=== PATIENT | female | born 1990 | race Caucasian/White ===

== ENCOUNTER → 2021-08-09 14:54 | Outpatient (CLI) | payer BC, SELFPAY | PROVIDERS: Visit Provider Nurse Practitioner | DX: Z20.822 Contact with and (suspected) exposure to COVID-19 (principal); U07.1 COVID-19 | CPT/HCPCS: C9803; U0003; U0005 ==

== ENCOUNTER 2021-08-19 14:56 | Emergency (ER) | payer BC, SELFPAY ==
[2021-08-19 15:35] VITALS: BP 107/74; PULSE 87; RESP 20; TEMP 36.8; O2SAT 99; BMI 39.1
--- NOTE | 2021-08-19 15:57 | HMH.EDUTC ---
[facility] Disposition Clinical Impression: Abscess and cellulitis of gluteal region Disposition: Home, Self-Care Condition on Discharge: Good Instructions: DI for Boils, Trimethoprim/Sulfamethoxazole (Alternative Therapy), Boil, Cephalexin, Mupirocin Additional Instructions: *Start antibiotic(s) immediately and be sure to take as ordered for the FULL length of time although you may be feeling better or start to see improvement in the next 24-48 hours *Monitor closely. Outlined redness so that you can monitor easier. Follow up immediately for new or worsening symptoms including but not limited to redness, swelling, streaking from site fever or chills. Wound Culture was obtained and sent to Lab make sure to follow up or call in the next 48 hours to make sure you are on correct antibiotic *Warm compress 15 minutes 3-4 times day *Never squeeze or pop these on your own. Seek immediate medical attention next time this occurs *Monitor Temp. Tylenol every 4 hours as needed and ibuprofen every 6 hours as needed (as long as your primary care doctor has told you that it is ok to take both. For fever, aches, pain. ER if no less that 101 despite Tylenol and ibuprofen Follow up with your family doctor/primary care physician in the next 48-72 hours if no improvement Return if needed Straight to ER if any life threatening symptoms Prescriptions: Sulfamethoxazole/Trimethoprim [Bactrim DS tablet] 1 each PO BID 7 Days #14 tab Transmission Status: Pending to [id number] cephALEXin [cephALEXin 500mg capsule*] 500 mg PO QID 7 Days #28 cap Transmission Status: Pending to [id number] Mupirocin Calcium [Mupirocin 2% Cream 15gm] 1 applicatio TP TID 10 Days #15 gm Transmission Status: Pending to [id number] Referrals: Provider,Referral, [Primary Care Provider] - As needed Forms: Work/School Release Time of Disposition: 16:37 Medical Decision Making - Fitz Inquiry Pt receiving controlled substance: No Fitz was queried for this patient: No Vital Signs: 08/19/21 15:35 Temperature 98.2 F Temperature Source Oral Pulse Rate [Right Brachial] 87 Respiratory Rate 20 Blood Pressure [Right Arm] 107/74 L Blood Pressure Mean [Right Arm] 85 Blood Pressure Source [Right Arm] Automatic Cuff Blood Pressure Position [Right Arm] Sitting 02 Sat by Pulse Oximetry 99 Oxygen Delivery Method Room Air Orders (Tests/Meds): ORDERS Category Date Time Status Wound Culture and Gram Stain Stat Micro 08/19/21 16:27 Ordered Medical Decision Narrative: Patient had large amount purulent drainage from area [facility] HPI - General Stated complaint: possible cyst in groin Time Seen by Provider: 08/19/21 15:58 Mode of Arrival: Ambulatory Source of Information: Patient Limitations: No Limitations Description of Symptoms (Recalled from Triage Doc. by RN): PATIENT C/O CYST TO GROIN AREA SINCE LAST THURSDAY. STATES CYST IS CAUSING HER A LOT OF PAIN WITH WALKING AND SITTING HEENT Symptoms (Recalled from RN notes): No Resp Symptoms (Recalled from RN notes): No Skin Symptoms (Recalled from RN notes): No MS Symptoms (Recalled from RN notes): No Functional Status (Recalled from RN notes): WNL - History of Present Illness Provider Complaint: Patient states that she gets cyst like boils on her groin area at times and some she has had to have lanced open States that she has been putting warm compresses on them and tried to open one to get it to start draining but hasnt had any success States that today it was sore and she noticed it looked swollen so she brought him in - Related Data Home Medications Medication Instructions Recorded Confirmed Doxycycline Hyclate [Doxycycline 50 mg PO BID 08/19/21 08/19/21 50mg Tablet] Previous Rx's Medication Instructions Recorded Mupirocin Calcium [Mupirocin 2% 1 applicatio TP TID 10 Days #15 gm 08/19/21 Cream 15gm] Sulfamethoxazole/Trimethoprim 1 each PO BID 7 Days #14 tab 08/19/21 [Ba
[2021-08-19 16:42] VITALS: BP 107/74; PULSE 87; RESP 20; TEMP 36.8; O2SAT 99
== END 2021-08-19 16:53 | disposition home or self-care (01) ==
PROVIDERS: Emergency Provider Nurse Practitioner
DX: L02.31 Cutaneous abscess of buttock (principal); F17.210 Nicotine dependence, cigarettes, uncomplicated
CPT/HCPCS: 87070; 87077; 87186; 87205; 99202; G0463

== ENCOUNTER 2022-08-04 18:18 | Emergency (ER) | payer BC, SELFPAY ==
[2022-08-04 18:40] VITALS: BP 110/82; PULSE 82; RESP 18; TEMP 36.8; O2SAT 99; BMI 45.0
--- NOTE | 2022-08-04 19:38 | EXP.UTC ---
Discharge Plan Disposition Patient Disposition: Home, Self-Care Condition: Good Prescriptions Prescriptions: No Action doxycycline hyclate 50 MG tablet,delayed release (DR/EC) 50 mg PO BID sulfamethoxazole-trimethoprim 1 EACH tablet 1 each PO BID 7 Days Qty: 14 0RF cephalexin 500 MG capsule 500 mg PO QID 7 Days Qty: 28 0RF mupirocin calcium 15 GM cream 1 applicatio TP TID 10 Days Qty: 15 0RF Rx Instructions: apply to area tid x 10 days Referrals Follow up/Referrals: Provider,Referral, MD [Primary Care Provider] - See instructions Activity Restrictions/Add. Instructions Additional Instructions/Restrictions: *Monitor Temp, Over the counter Motrin or Tylenol as directed/as needed Tylenol every 4 hours and Motrin every 6 hours (as long as your family doctor has told you that you can take it) for fever or pain. and straight to ER if unable to lower temp less than 101.0 after medication given *Warm salt water gargles may help to soothe the throat *Throat Lozenges? *Warm fluids like tea with honey may help to soothe the throat? *Sleep elevated *Humidifier/Vaporizer Follow up IMMEDIATELY for new or worsening symptoms or no Noticeable improvement over the next 48-72 hours. 911 for difficulty breathing or swallowing You were tested for today for COVID19 your test result should be back in the next 24-48 hours, you may check your results on the [facility] My Health Portal Make sure to take your Vitamins Vit. C Vit D and Zinc if you can take them Clinical Impressions Clinical Impression: Exposure to COVID-19 virus Stand Alone Forms Stand Alone Forms: Work/School Release Instructions Patient Instructions: DI for Viral Syndrome, Coronavirus Disease 2019 Discharge ED Provider: Tete Calixto [facility] [place] HPI General Stated complaint: cough, runny nose, covid test Mode of Arrival: Ambulatory Source of Information: Patient Limitations: No Limitations Time Seen by Provider: 08/04/22 19:38 Description of Symptoms (Recalled from Triage Doc. by RN): PATIENT C/O SORE THROAT, COUGH, RUNNY NOSE, CONGESTION AND WEAKNESS SINCE LAST NIGHT HEENT Symptoms (Recalled from RN notes): Yes Resp Symptoms (Recalled from RN notes): No Skin Symptoms (Recalled from RN notes): No MS Symptoms (Recalled from RN notes): No Functional Status (Recalled from RN notes): WNL History of Present Illness Provider Complaint: Patient states that she was recently around her brother in law that just tested postive for COVID States that last night she started with scratchy throat and feeling achy and fatigued States that started showing symptoms today too so she came in to get tested Related Data Home Medications Medication Instructions Recorded Confirmed doxycycline hyclate 50 mg 50 mg PO BID SKIN CONDITION 08/19/21 08/19/21 tablet,delayed release Previous Rx's Medication Instructions Recorded cephalexin 500 mg capsule 500 mg PO QID 7 days #28 caps 08/19/21 mupirocin calcium 2 % topical cream 1 applicatio TP TID 10 days ##15 08/19/21 sulfamethoxazole 800 1 each PO BID 7 days #14 tabs 08/19/21 mg-trimethoprim 160 mg tablet Allergies Allergy/AdvReac Type Severity Reaction Status Date / Time No Known Allergies Allergy Verified 12/16/18 12:51 Worker's Comp Is this a Worker's Comp case?: No PFSH PFS Surgical History (Updated 08/04/22 @ 18:57 by Olena Hardy RN) History of section Social History (Updated 08/04/22 @ 18:57 by Olena Hardy RN) Smoking Status: Current every day smoker tobacco type: cigarettes packs per day: 1 second hand exposure: Yes alcohol intake: never current occupational status: employed Travel in the last 8 weeks: None household members: family housing: house ROS Obtained: Yes All systems reviewed & no additional complaints except as documented and Yes Systems reviewed as appropriate & no additional complaints except as
[2022-08-04 19:45] VITALS: BP 110/82; PULSE 82; RESP 18; TEMP 36.8; O2SAT 99
== END 2022-08-04 19:48 | disposition home or self-care (01) ==
PROVIDERS: Emergency Provider Nurse Practitioner
DX: J02.9 Acute pharyngitis, unspecified (principal); R05.9 Cough, unspecified; R09.81 Nasal congestion; R53.1 Weakness; F17.210 Nicotine dependence, cigarettes, uncomplicated; Z20.822 Contact with and (suspected) exposure to COVID-19
CPT/HCPCS: 99212; C9803; G0463; U0003; U0005

== ENCOUNTER 2024-01-05 11:46 | Outpatient (POV) | payer BC, SELFPAY | END 2024-01-05 23:59 | disposition home or self-care (01) | LOC: SC 11:47 | PROVIDERS: PCP Dermatology; Visit Provider Dermatology | DX: Z00.00 Encounter for general adult medical examination without abnormal findings (principal) ==

== ENCOUNTER 2024-03-01 10:42 | Outpatient (POV) | payer BC, SELFPAY | END 2024-03-01 23:59 | disposition home or self-care (01) | LOC: SC 10:42 | PROVIDERS: Visit Provider Dermatology | DX: Z00.00 Encounter for general adult medical examination without abnormal findings (principal) ==

== ENCOUNTER 2024-04-25 11:41 | Outpatient (CLI) | payer BC, SELFPAY ==
--- NOTE | 2024-04-25 11:57 | XR_ITS ---
FINAL REPORT CLINICAL HISTORY: RT ELBOW JOINT PAIN FINDINGS: 3 views of the right elbow were obtained. There is no acute fracture or dislocation. The joint spaces are intact. There is not soft tissue abnormality. IMPRESSION: No acute fracture Reviewed, Interpreted and Dictated by Jon Mckeon III, MD Transcribed by Angela Ferro Authenticated and [facility]
--- NOTE | 2024-04-25 11:57 | XR_ITS ---
FINAL REPORT CLINICAL HISTORY: LT HAND PAIN FINDINGS: LEFT HAND Three views demonstrate no acute fracture or dislocation. The visualized joint spaces are normally aligned. The soft tissues are unremarkable. IMPRESSION: No acute process. Reviewed, Interpreted and Dictated by Jon Mckeon III, MD Transcribed by Angela Ferro [facility]
== END 2024-04-25 23:59 | disposition home or self-care (01) ==
LOC: RAD 11:41
PROVIDERS: PCP Nurse Practitioner Family; Visit Provider Nurse Practitioner Family
DX: M25.521 Pain in right elbow (principal); M79.642 Pain in left hand
CPT/HCPCS: 73080; 73130

== ENCOUNTER 2024-05-25 06:25 | Day surgery (SDC) | payer BC, SELFPAY ==
[2024-05-23 13:10] VITALS: BMI 45.4
[2024-05-25] VITALS (11 sets, daily range): BP systolic 108–124; BP diastolic 65–78; PULSE 77–85; RESP 12–18; TEMP 36.1–43; O2SAT 91–99
[2024-05-25 07:05] LABS: Urine Pregnancy, HCG Qual. Negative (Negative)
[2024-05-25] MEDS: LACTATED RINGERS 1000ML 1,000 ML 100 ML IV (07:10)
--- NOTE | 2024-05-25 07:29 | EXP.ANES.CKL ---
[facility] Disclaimer: The information contained in this section may have been updated after the patient was seen, as this information can be updated by other users. Medical History History of COVID-19 Surgical History History of section Family History Father Family history of diabetes mellitus type II Grandfather Family history of acute congestive heart failure Social History Smoking Status: Current every day smoker tobacco type: cigarettes packs per day: 1 second hand exposure: Yes alcohol intake: current substance use type: denies use current occupational status: employed Travel in the last 8 weeks: None household members: family housing: house [facility] Anesthesia Checklist Patient Identification Patient Identification: Arm Band and Verbal (Name & ) Structural Data Admitted From: Home Planned Operative Procedure/s: Excision soft tissue mass Consent for Planned Operative Procedure(s) Verified: Yes Verified Documents: Surgical Consent and History and Physical NPO Status Verified Time NPO: 00:00 Chart Verification Results Verified: HCG Additional verifications Anesthesia Reactions: No Hx Blood Transfusions: No Blood Transfusion Reaction: No Airway Assessment Mallampati Score:: Class III C-Spine Mobility Assessed: Yes TMJ Mobility Assessed: Yes Dentition: Good Dentition Neurological Assessment Level of Consciousness: Awake Hx Seizures: No Numbness or tingling in extremities: No Anesthesia Plan Anesthesia Risk discussed: Yes Anesthesia Plan: Verified ASA Class: III Anesthesia Type: General
[2024-05-25] MEDS: CEFAZOLIN SODIUM 2 GM in 0.9 % SODIUM CHLORIDE 100 ML IV (08:47)
[2024-05-25] MEDS: LIDOCAINE 1% W/EPI 1:100,000 20ML VIAL 20 ML (08:48)
--- NOTE | 2024-05-25 09:16 | EXP.ANES.I ---
[facility] Anesthesia Record Part I Anesthesia Record I Intake, IV Amount: 500 Hydration: Adequate Estimated blood loss (mL): 5 Urine output (mL): 0 Blood Products used (#): none Blood Pressure: 120/73 SaO2: 91 Pulse Rate: 85 Airway Patency: Patent Respiratory Rate: 16 Temperature: 98.9 F Patient is:: Drowsy and Stable Stable to PACU at:: 09:10
--- NOTE | 2024-05-25 09:17 | P.OP_ITS ---
Date of procedure: 05/25/24 Pre-op Diagnosis:: Soft tissue mass dorsum left hand Post-op Diagnosis:: Same Procedure performed:: Excision soft tissue mass dorsum left hand, ganglion cyst Surgeon:: Faustino Santiago DO STEAM BR[employer] OPERATOR:: Valente Erwin Anesthesia: LMA Estimated blood loss (mL): 0 Operative findings:: Soft tissue mass attached to extensor tendon sheath left hand consistent with ganglion cyst Operative note:: Patient is identified preoperatively. Left hand marked with yes my initials. Transferred operative suite placed upon operating bed with a hand table. General anesthesia administered airway was secured. Left upper extremity was then prepped and draped normal sterile fashion. Once prepped and draped final operative timeout performed to identify proper patient procedure and extremity. Everyone involved the case agreed. There is no counter indications to beginning. Did receive preoperative antibiotics. Marking pen was used to jim plan incision over the soft tissue mass of the dorsum of the left hand. Esmarch was used to exsanguinate the extremity and pneumatic tourniquet inflated to 250 mmHg. Skin knife was used incise through skin. Dissection with scissors were taken down to the palpable soft tissue mass in the dorsum of the left hand adjacent to and moving with the extensor tendons. Careful dissection was taken down to identify soft tissue mass on the dorsum of the extensor tendon this was a ganglion cyst attached to the extensor tendon sheath. Careful dissection was taken to dissect soft tissue mass off of the tendon itself Excised and passed off for pathology. The nature of the soft tissue mass was consistent with ganglion cyst. Irrigation of the wound was performed. Skin was closed analysis sterile hand dressing placed patient waken anesthesia taken recovery stable condition. Condition: stable Disposition: PACU Complications:: None apparent
--- NOTE | 2024-05-25 13:08 | EXP.ANES.II ---
[facility] Anesthesia Record Part II Anesthesia Record Part II Discharge Time: 09:40 Destination: Surgical Day Care (OP Surgery) PACU nurse assessment reviewed?: Yes Patient Condition:: Good Anesthesia Complications:: None Swallowing reflex intact?: Yes Airway Patency: Patent Cyanosis?: No Blood Pressure: 122/78 SaO2: 93 Respiratory Rate: 16 Pulse Rate: 84 Temperature: 97.8 F Mental Status: Alert & Oriented Pain level:: 0 Nausea and/or vomitting:: None Intake, IV Amount: 0 Hydration: Adequate
== END 2024-05-25 10:11 | disposition home or self-care (01) ==
PROVIDERS: PCP Nurse Practitioner Family; Visit Provider Orthopaedic Surgery
PROC: (CPT 26160; principal; 2024-05-25 08:30)
DX: M67.442 Ganglion, left hand (principal)
CPT/HCPCS: 26160; 81025; 96374; J0690; J1100; J2250; J2405; J3010; J7120

== ENCOUNTER 2024-06-06 14:00 | Outpatient (RCR) | payer BC, SELFPAY | END 2024-06-06 15:00 | disposition home or self-care (01) | LOC: OT 14:00 | PROVIDERS: Visit Provider Orthopaedic Surgery | DX: M77.11 Lateral epicondylitis, right elbow (principal) | CPT/HCPCS: 97010; 97014; 97035; 97110; 97140; 97164; 97165; G0283 ==

== ENCOUNTER 2024-06-20 01:27 | Emergency (ER) | payer BC, SELFPAY ==
[2024-06-20 01:28] VITALS: BP 141/101; PULSE 83; RESP 20; TEMP 36.7; O2SAT 100; BMI 45.4
--- NOTE | 2024-06-20 01:36 | HMH.EDGENADL ---
Discharge Plan Disposition Patient Disposition: Home, Self-Care Prescriptions Prescriptions: No Action ibuprofen 800 mg tablet 800 mg PO Q8H PRN (Reason: post op pain) Qty: 42 0RF Referrals Follow up/Referrals: Conrad Solis APRN [Primary Care Provider] - See instructions Activity Restrictions/Add. Instructions Additional Instructions/Restrictions: Please return for formal ultrasound of the leg. Clinical Impressions Clinical Impression: Pain and swelling of right lower leg Print Language Print Language: Brazilian Discharge ED Provider: Rodrigo Shaffer General Adult HPI General Chief complaint: Extremity Problem,Nontraumatic Stated complaint: R leg swelling, toes tingling, numbness Time Seen by Provider: 06/20/24 01:36 History of Present Illness HPI narrative: 33-year-old female with history of obesity presents for right lower extremity pain and swelling. She reports that she has chronic right foot pain from walking on concrete at work. It hurts on the lateral aspect. She is here tonight because she has new right leg pain and swelling that cropped up after she drove back from [place]. She reports that she had a 14-hour car ride on the way back. She reports no history of blood clots, denies any chest pain abdominal pain shortness of breath. She has a Mirena and absolutely denies any possibility of . She denies any trauma to the area, does reports she got some sunburn. Related Data Previous Rx's ?Medication ?Instructions ?Recorded ibuprofen 800 mg tablet 800 mg PO Q8H PRN post op pain #42 05/25/24 tabs Allergies Allergy/AdvReac Type Severity Reaction Status Date / Time No Known Allergies Allergy Verified 06/09/24 09:53 [facility] Disclaimer: The information contained in this section may have been updated after the patient was seen, as this information can be updated by other users. Medical History History of COVID-19 Surgical History History of section Family History Father Family history of diabetes mellitus type II Grandfather Family history of acute congestive heart failure Social History (Reviewed 06/09/24 @ 09:54 by AGNES Hughes Smoking Status: Current every day smoker tobacco type: cigarettes packs per day: 1 second hand exposure: Yes alcohol intake: current substance use type: denies use current occupational status: employed Travel in the last 8 weeks: None household members: family housing: house ROS Obtained: Yes All systems reviewed & no additional complaints except as documented Physical Exam General General appearance: alert, in no apparent distress and obese Head Head exam: atraumatic and normocephalic Eye Eye exam: Present normal appearance, PERRL and EOMI ENT ENT exam: Present normal oropharynx and normal external ear exam Neck Neck exam: Present normal inspection and full ROM Chest Chest inspection: Present normal inspection and symmetric chest wall rise; Absent tenderness Respiratory Respiratory exam: Present normal lung sounds bilaterally; Absent respiratory distress Cardiovascular Cardiovascular exam: Present regular rate and normal rhythm Abdominal Exam Abdominal exam: Present soft; Absent distention, tenderness or guarding Extremities Exam Extremities exam: Present other (Pitting edema and swelling to the right foot, circumferential swelling to the right calf with some increased erythema of the right compared to the left. Mild tenderness of the lower calf, no popliteal tenderness) Back Exam Back exam: Present normal inspection; Absent tenderness Neurological Exam Neurological exam: Present alert and oriented X3; Absent motor sensory deficit Psychiatric Psychiatric exam: Present normal affect and normal mood Skin Skin exam: Present warm, dry and normal color Lymphatic Lymphatic Findings: no adenopathy Medical Decision Making Medical Records Medical records reviewed: Yes I reviewed the patient's medical records. Fitz Inquiry Pt receiving controlled substance: No Fitz was queried for this patient: No Vital Signs: 06/20/24 01:28 06/20/24 02:22 Temperature 98.1 F 98.1 F Temperature Source Oral Oral Pulse Rate 68 Pulse Rate [Right Brachial] 83 Respiratory Rate 20 18 Blood Pressure 138/78 Blood Pressure [Right Arm] 141/101 H Blood Pressure Mean [Right Arm] 114 02 Sat by Pulse Oximetry 100 Oxygen Delivery Method Room Air Room Air Lab Data Lab results reviewed: Yes I reviewed the patient's lab results. Orders (Tests/Meds): ED MEDICATIONS Discontinued Medications Generic Name Dose Route Start Last Admin Trade Name Freq PRN Reason Stop Dose Admin Enoxaparin Sodium 100 mg 06/20/24 02:00 06/20/24 02:03 Enoxaparin 100mg/Ml Syringe 0.75 mg/kg (100 mg) 06/20/24 02:01 100 mg SQ Administration ONCE ONE ORDERS Category Date Time Status Foot XR right minimum 3 views [XR foot RT min 3V] Stat Exams 06/20/24 01:58 Taken POCUS Point of Care (ER Only) Stat Exams 06/20/24 01:36 Ordered Medical Decision Narrative: 33-year-old female with history of obesity presents for right leg pain and swelling after a 14-hour car ride from [place].. History was obtained via interactive discussion with patient. On arrival, patient is [afebrile, hemodynamically stable, satting appropriately, alert, oriented x4, GCS 15], moving all extremities spontaneously. Full physical exam performed and significant for right lower extremity pain and swelling as documented above. Patient denies any chest pain abdominal pain shortness of breath, has normal vital signs. Differential includes but is not limited to DVT, PE, cellulitis, abscess, fracture, trauma. Workup initiated including radiograph of the right foot and bedside ultrasound. Bedside ultrasound for DVT was inconclusive secondary to patient body habitus. On my interpretation, radiographs of the right foot showed no evidence of acute fracture in the area of patient's pain. Given concern for DVT, patient was given a dose of Lovenox and an outpatient form to return for formal ultrasound tomorrow morning. Blood work and CT imaging of the chest was considered to assess for PE but administered given patient has normal vital signs and no symptoms to suggest PE. Patient discharged in stable condition with return precautions. Procedures Risk/Benefits of Procedure(s) Were Explained: Yes Critical Care Critical Care Time Critical Care Time: No
--- NOTE | 2024-06-20 01:58 | XR_ITS ---
PROCEDURE INFORMATION: Exam: XR Right Foot Exam date and time: 06/20/2024 1:57 AM Age: 33 years old Clinical indication: Pain; Foot; Right; Additional info: Acute on chronic lateral foot pain TECHNIQUE: Imaging protocol: Radiologic exam of the right foot. Views: 3 or more views. COMPARISON: No relevant prior studies available. FINDINGS: Bones/joints: Normal. Soft tissues: Normal. IMPRESSION: No acute findings.
[2024-06-20] MEDS: ENOXAPARIN 100MG/ML SYRINGE 100 MG SQ (02:03)
[2024-06-20 02:22] VITALS: BP 138/78; PULSE 68; RESP 18; TEMP 36.7; O2SAT 99
== END 2024-06-20 02:24 | disposition home or self-care (01) ==
PROVIDERS: Emergency Provider Emergency Medicine; PCP Nurse Practitioner Family
DX: M79.661 Pain in right lower leg (principal); R22.41 Localized swelling, mass and lump, right lower limb
CPT/HCPCS: 73630; 96372; 99283; J1650

== ENCOUNTER 2024-06-20 11:02 | Outpatient (CLI) | payer BC, SELFPAY ==
--- NOTE | 2024-06-20 11:07 | CA_ITS ---
FINAL REPORT TECHNIQUE: Multiple transverse and longitudinal images were performed of the right femoral-popliteal deep venous system with augmentation and compression maneuvers. CLINICAL HISTORY: Patient states her RLE edema x 3 days happened as she was traveling 14 hours by car from [place]. She states [place]. Pain is mostly in the right foot. Denies trauma. Smoker, obesity, Mirena IUD x 7 years. COMPARISON: None FINDINGS: Right lower extremity duplex ultrasound demonstrates normal flow in the deep venous system. There is no abnormal echogenicity to suggest thrombus. There is normal compression and augmentation. IMPRESSION: No evidence of right DVT. Reviewed, Interpreted and Dictated by Phyllis Carlin MD Transcribed by Alejandra Cespedes Authenticated and [facility]
== END 2024-06-20 23:59 | disposition home or self-care (01) ==
LOC: RT 11:04
PROVIDERS: PCP Nurse Practitioner Family; Visit Provider Emergency Medicine
DX: M79.661 Pain in right lower leg (principal); M79.89 Other specified soft tissue disorders
CPT/HCPCS: 93971

== ENCOUNTER 2025-09-13 03:15 | Emergency (ER) | payer OTHER, SELFPAY ==
--- NOTE | 2025-09-13 03:20 | HMH.EDGENADL ---
Discharge Plan Disposition Patient Disposition: Home, Self-Care Prescriptions Prescriptions: No Action ibuprofen 800 mg tablet 800 mg PO Q8H PRN (Reason: post op pain) Qty: 42 0RF Referrals Follow up/Referrals: Conrad Solis APRN [Primary Care Provider, Medical] - See instructions Faustino Santiago DO [Staff Physician, Orthopedics] - See instructions Activity Restrictions/Add. Instructions Additional Instructions/Restrictions: Recommend limiting activities that produce pain in the finger, otherwise okay to do normal activities. If your symptoms continue or worsen, recommend following up with orthopedist Dr. Santiago. Clinical Impressions Clinical Impression: Traumatic ecchymosis of finger Qualifiers: Encounter type: initial encounter Qualified Code(s): S60.00XA - Contusion of unspecified finger without damage to nail, initial encounter Print Language Print Language: American Discharge ED Provider: Rodrigo Shaffer General Adult HPI General Chief complaint: Extremity Injury, Upper Stated complaint: R hand, finger injury Time Seen by Provider: 09/13/25 03:20 History of Present Illness HPI narrative: 34-year-old female without significant past medical history presents for bruising to the right hand. She was working at [employer] when she had a large roll of film smashed her hand. She reports bruising over the MCP joints of the 2nd and 3rd digit as well as the PIP joint of the fourth digit. She has some pain in those areas. She reports that she is able to fully flex and extend her fingers but with pain. Reports some decrease sensation over the PIP joint of the fourth digit. Related Data Previous Rx's ?Medication ?Instructions ?Recorded ibuprofen 800 mg tablet 800 mg PO Q8H PRN post op pain #42 05/25/24 tabs Allergies Allergy/AdvReac Type Severity Reaction Status Date / Time No Known Allergies Allergy Verified 06/09/24 09:53 [facility] Disclaimer: The information contained in this section may have been updated after the patient was seen, as this information can be updated by other users. Medical History History of COVID-19 Surgical History History of section Family History Father Family history of diabetes mellitus type II Grandfather Family history of acute congestive heart failure Social History Smoking Status: Current every day smoker tobacco type: cigarettes packs per day: 1 second hand exposure: Yes alcohol intake: current substance use type: denies use current occupational status: employed Travel in the last 8 weeks?: None household members: family housing: house Have you lived/traveled outside [place] in past 30 days?: No Contact w/someone who lives/traveled outside [place] past 30 days?: No Exposure to someone with infectious disease in past 14 days?: No Do you have a fever (greater than 100.4 F or 38 C)?: No Have you tested positive for COVID-19?: No Exposed to someone with COVID-19 in past 14 days?: No Do you have a sore throat?: No Do you have a cough?: No Do you have any weakness?: No Do you have any diarrhea?: No Are you experiencing any unusual bleeding?: No Do you have any muscle aches/pain?: No Do you have any abdominal pain?: No Are you experiencing loss of taste or smell?: No Other Medical History Have you received the Flu Vaccine for this season: Yes Have you received the Pneumonia Vaccine: No ROS Obtained: Yes All systems reviewed & no additional complaints except as documented Physical Exam General General appearance: alert and in no apparent distress Head Head exam: atraumatic and normocephalic Eye Eye exam: Present normal appearance, PERRL and EOMI ENT ENT exam: Present normal oropharynx and normal external ear exam Neck Neck exam: Present normal inspection and full ROM Chest Chest inspection: Present normal inspection and symmetric chest wall rise; Absent tenderness Respiratory Respiratory exam: Present normal lung sounds bilaterally; Absent respiratory distress Cardiovascular Cardiovascular exam: Present regular rate and normal rhythm Abdominal Exam Abdominal exam: Present soft; Absent distention, tenderness or guarding Extremities Exam Extremities exam: Present other (Erythema and tenderness over the right 4th and 5th MCP joint. Bruising and swelling and tenderness to the fourth PIP joint. No obvious deformity. Intact neurovascular and tendon exam.) Back Exam Back exam: Present normal inspection; Absent tenderness Neurological Exam Neurological exam: Present alert and oriented X3; Absent motor sensory deficit Psychiatric Psychiatric exam: Present normal affect and normal mood Skin Skin exam: Present warm, dry and normal color Lymphatic Lymphatic Findings: no adenopathy Medical Decision Making Medical Records Medical records reviewed: Yes I reviewed the patient's medical records. Screening: Per USPSTF and CDC recommendations, given the prevalence of disease in our region, it is our hospital?s policy to screen for HIV and viral Hepatitis for all patients aged 18 and over and those with ongoing risk factors. Fitz Inquiry Pt receiving controlled substance: No Fitz was queried for this patient: No Vital Signs: 09/13/25 03:24 09/13/25 03:51 Temperature 98.8 F 98.8 F Temperature Source Oral Oral Pulse Rate 88 Pulse Rate [Left] 89 Respiratory Rate 17 16 Blood Pressure 134/77 Blood Pressure [Right Arm] 137/87 Blood Pressure Mean [Right Arm] 103 Blood Pressure Source Automatic Cuff Blood Pressure Source [Right Arm] Automatic Cuff Blood Pressure Position Sitting Blood Pressure Position [Right Arm] Sitting 02 Sat by Pulse Oximetry 97 Oxygen Delivery Method Room Air Room Air Lab Data Lab results reviewed: Yes I reviewed the patient's lab results. Orders (Tests/Meds): ORDERS Category Date Time Status Hand XR right minimum 3 views [XR hand RT min 3V] Stat Exams 09/13/25 03:21 Completed Medical Decision Narrative: 34-year-old female without significant past medical history presents for right hand injury. History was obtained via interactive discussion with patient. On arrival, patient is [afebrile, hemodynamically stable, satting appropriately, alert, oriented x4, GCS 15], moving all extremities spontaneously. Full physical exam performed and significant for findings as documented above. Differential includes but is not limited to fracture, dislocation, neurovascular/ligamentous/tendon injury. Patient declined pain meds. Workup initiated including radiographs of the right hand. On re-evaluation, patient [remains afebrile, HD stable.] Imaging independently interpreted by me and significant for no obvious fracture or dislocation.. See radiology read for full review of final results. Given patient history, exam and workup, patient's presentation most likely represents bruising to the hand. No obvious evidence of fracture or soft tissue injury. The fourth digit was nash taped to the third digit. Patient was encouraged follow-up with Ortho if her symptoms continue to worsen or do not improve over the next few days.. Procedures Risk/Benefits of Procedure(s) Were Explained: Yes Critical Care Critical Care Time Critical Care Time: No
--- NOTE | 2025-09-13 03:21 | XR_ITS ---
PROCEDURE INFORMATION: Exam: XR Right Hand Exam date and time: 09/13/2025 3:24 AM Age: 34 years old Clinical indication: Pain; Hand; Right; Additional info: Trauma, bruising to 2/3 mcp, 4 pip TECHNIQUE: Imaging protocol: Radiologic exam of the right hand. Views: 3 or more views. COMPARISON: CR XR ELBOW RT MIN 3V 04/25/2024 12:08 PM FINDINGS: Bones/joints: Normal. Soft tissues: Normal. IMPRESSION: No acute findings.
[2025-09-13 03:24] VITALS: BP 137/87; PULSE 89; RESP 17; TEMP 37.1; O2SAT 97; BMI 39.1
--- OUTSIDE RECORDS SUMMARY | 2025-09-13 03:30 | XMS_ITS | Data Portability ---
Author Organization [facility] Address [address] [place] [address] Care Team Providers Care Agronomy Teacher Name Role Phone LAUREANO SHANELL [facility] Assessment No assessment recorded. Plan of Treatment Reminders Order Date Submit Date Provider Last Modified By Organization Details Last Modified Time Details Appointments None recorded. Lab CMP, serum or plasma 2024 025 [facility], [address], [address], [place], [address], 5 10:12:50 Mycobacteri um tuberculosi s stimulated gamma interferon, qual, blood 2024 025 [facility], [address], [address], [place], [address], 5 10:12:51 CBC w/ auto diff 2024 025 [facility], [address], [address], [place], [address], 5 10:12:50 lipid panel, serum 2024 025 [facility], [address], [address], [place], [address], 5 10:12:51 hepatitis panel (A+B+C), acute, serum 2024 025 [facility], [address], [address], [place], [address], 5 10:12:50 herpes simplex virus 1 + 2 IgG panel, serum or plasma 2024 025 [place] [facility], [address], [address], [place], [address], 5 08:10:12 culture, wound 2024 025 [place] [facility], [address], [address] [address], [place], [address], 5 20:07:26 test, urine 2023 024 [facility], [address] [place] [address] , [place], [address], 4 14:21:[address] referral - medium priority 2024 bstears Steffen Cabrera MD, [address] [facility], [facility] [address], [place], [address], 5 14:51:38 Procedures None recorded. Surgeries None recorded. Imaging US, transvagina l 2023 024 danilo [place] [employer], [address] [place] [address] , [place], [address], 4 10:11:42 Medication Orders Bactrim DS 800 mg-160 mg tablet 2024 025 [facility], [address] [place], [address], 5 10:12:36 mupirocin 2 % topical ointment 2024 025 [facility], [address] [place], [address], 5 10:00:02 ibuprofen 800 mg tablet 2023 0630/ 025 [facility], [address] [facility] [place], [address], 08:23:47 Patient TargetsNo targets recorded. Patient Instructions Encounter Date Encounter Id Patient Instructions Last Modified By Organization Details Last Modified Time 10/13/2024 [id number] body mass index: care instructions [email or web address] Not available 10/13/2024 14:09:46 learning about healthy weight [email or web address] Not available 10/13/2024 14:09:46 10/31/2024 [id number] body mass index: care instructions [email or web address] Not available 10/31/2024 09:43:46 learning about healthy weight [email or web address] Not available 10/31/2024 09:43:46 Reason for Referral Glass Bulb Silverer Referral for H idradenitis suppurativa medium priority Referring Physician: Conrad Solis, Family Medicine, Encounter Date: 05/22/2025 Results Created Date Observation Date Name Description Value Unit Range Abnormal Flag Note LastModifiedBy Organization Detail LastModifiedTime 10/13/20 24 10/13/2024 pregn yesy test, urine HCG negati ve Not Available [place] [employer] [address] [place] [address] , [place], [address], 10/13/2024 14:09:33 05/22/20 25 05/25/2025 ANAER OBIC AND AEROB IC CULTU RE aerobic culture Final report Not Available [facility] ([facility]) [address] [facility], [place], [address], 05/29/2025 20:07:26 05/22/20 25 05/25/2025 ANAER OBIC AND AEROB IC CULTU RE result 1 Mixed skin eduardo Not Available [facility] ([facility]) [address] [facility], [place], [address], 05/29/2025 20:07:26 05/22/20 25 05/29/2025 ANAER OBIC AND AEROB IC CULTU RE anaerobic culture Final report abnormal Not Available [facility] ([facility]) [address] [facility], [place], [address], 05/29/2025 20:07:26 05/22/20 25 05/29/2025 ANAER OBIC AND AEROB IC CULTU RE result 1 COMMEN T abnormal Mixed anaer obic organ isms, none predo minat ing. Not Available [facility] ([facility]) [address] [facility], [place], [address], 05/29/2025 20:07:26 06/15/20 25 06/16/2025 HSV 1 AND 2 AB, IGG hsv 1 IgG, type spec Non Reacti ve non reacti ve Ple ase note refer ence inter mayra hickman e HSV-1 IgG testi ng perfo rmed using the [employer] HSV-1 IgG assay . Not Available [facility] ([facility]) [address] [facility], [place], [address], 06/16/2025 08:10:12 06/15/20 25 06/16/2025 HSV 1 AND 2 AB, IGG hsv 2 IgG, type spec Non Reacti ve non reacti ve Ple ase note refer ence inter mayra hickman e Curre nt guide lines and recom menda tions do not recom mend routi ne scree alfonso for HSV-2 in asymp tomat ic indiv idual s, inclu ding those that are pregn ant. The detec tion of HSV-2 IgG antib odies in a singl e sampl e indic ates previ ous expos ure to HSV-2 but does not give infor matio n as to the site of HSV infec tion or the timin g of expos ure. The predi ctive value of posit anjum and negat anjum resul ts depen ds on the popul ation 's preva lence and the prete st likel ihood of HSV-2 . HSV-2 IgG testi ng perfo rmed using the [employer] HSV-2 IgG assay . Not Available [facility] ([facility]) [address] [facility], [place], [address], 06/16/2025 08:10:12 06/15/2006/16/2025 [place] Moses NOTE please note Commen t The date and/o r time of colle ction was not indic ated on the requi sitio n as requi red by state and dudley al law. The date of recei pt of the speci men was used as the colle ction date if not suppl ied. Not Available [facility] ([facility]) [address] [facility], [place], [address], 06/16/2025 08:10:13 06/20/2006/20/2025 HAV, HBV, HCV interpretati on Commen t HBV Serol ogy Inter preta tion Chart ----- ----- ----- ----- ----- ----- ----- ----- ----- ----- ----- ----- ----- -- Inter preta tion HBsAg anti- HBs anti- HBc anti- HBc IgM ----- ----- ----- ----- ----- ----- ----- ----- ----- ----- ----- ----- ----- -- Rolle - Elizabeth te prese nt: + Elizabeth te absen t: - Test not indic ated: TNI ----- ----- ----- ----- ----- ----- ----- ----- ----- ----- ----- ----- ----- -- Devorah ptibl e (neve r infec gris and no evide nce - - - TNI of vacci natio n) ----- ----- ----- ----- ----- ----- ----- ----- ----- ----- ----- ----- ----- -- Immun e due to gabby al resol donna infec tion - + + TNI ----- ----- ----- ----- ----- ----- ----- ----- ----- ----- ----- ----- ----- -- Immun e due to vacci natio n - + - TNI ----- ----- ----- ----- ----- ----- ----- ----- ----- ----- ----- ----- ----- -- Acute Infec tion + - + + ----- ----- ----- ----- ----- ----- ----- ----- ----- ----- ----- ----- ----- -- Chron ic infec tion + - + - ----- ----- ----- ----- ----- ----- ----- ----- ----- ----- ----- ----- ----- -- Inter preta tion uncle ar* - - + +/- ----- ----- ----- ----- ----- ----- ----- ----- ----- ----- ----- ----- ----- -- *Mult iple possi bilit ies: resol donna infec tion (most commo n); false - posit anjum anti- HBc (susc eptib le); low- level chron ic infec tion ; resol ving acute infec tion. Not Available [facility] ([facility]) [address] [facility], [place], [address], 06/22/2025 10:12:50 06/20/20 25 06/21/2025 HAV, HBV, HCV hep A Ab, total Negati ve negati ve Comme nt: The HAV total antib francisco assay detec ts both IgG and IgM but does not diffe renti ate betwe en them. A negat anjum resul t sugge sts susce ptibi lity to infec tion. A posit anjum resul t could be due to vacci natio n, previ ously resol donna infec tion or activ e infec tion. Testi ng for HAV IgM shoul d be perfo rmed if activ e HAV infec tion is suspe cted. [facility] offer s profi les that will autom atica lly refle x posit anjum HAV total antib francisco resul ts to IgM (e.g. , panel #[id number] HAV Antib francisco w/ Rfx). Not Available [facility] ([facility]) [address] [facility], [place], [address], 06/22/2025 10:12:50 06/20/2006/21/2025 HAV, HBV, HCV HBsAg screen Negati ve negati ve Not Available [facility] ([facility]) [address] [place], [address], 06/22/2025 10:12:50 06/20/20 25 06/21/2025 HAV, HBV, HCV hep B surface Ab, qual Reacti ve Non React anjum: Not immun e to HBV infec tion. Equiv ocal: Unabl e to deter mine if anti- HBs is prese nt at level s consi stent with immun ity. React anjum: Anti- HBs leo ntrat ion detec gris at great er than 10 mIU/m L. Indiv idual is consi dered to be immun e to infec tion with HBV. Not Available [facility] ([facility]) [address] [facility], [place], [address], 06/22/2025 10:12:50 06/20/20 25 06/21/2025 HAV, HBV, HCV hep B core Ab, tot Negati ve negati ve Not Available [facility] ([facility]) [address] [facility], [place], [address], 06/22/2025 10:12:50 06/20/20 25 06/21/2025 HAV, HBV, HCV rfx to hbc IgM Commen t Refle x crite simone was not met. Not Available [facility] ([facility]) [address] [facility], [place], [address], 06/22/2025 10:12:50 06/20/20 25 06/21/2025 HAV, HBV, HCV HCV Ab Non Reacti ve non reacti ve Not Available [facility] ([facility]) [address] [facility], [place], [address], 06/22/2025 10:12:50 06/20/20 25 06/21/2025 HAV, HBV, HCV interpretati on: Commen t Not infec gris with HCV unles s early or acute infec tion is suspe cted (whic h may be delay ed in an immun ocomp romis ed indiv idual ), or other evide nce exist s to indic ate HCV infec tion. Not Available [facility] ([facility]) [address] [facility], [place], [address], 06/22/2025 10:12:50 06/20/20 25 06/21/2025 CBC WITH DIFFE RENTI AL/PL ATELE T WBC 8.2 x10e3 /uL 3.4-10 .8 normal Not Available [facility] ([facility]) [address] [facility], [place], [address], 06/22/2025 10:12:50 06/20/20 25 06/21/2025 CBC WITH DIFFE RENTI AL/PL ATELE T RBC 5.04 x10e6 /uL 3.77-5 .28 normal Not Available [facility] ([facility]) [address] [place], [address], 06/22/2025 10:12:50 06/20/20 25 06/21/2025 CBC WITH DIFFE RENTI AL/PL ATELE T hemoglobin 12.6 g/dL 11.1-1 5.9 normal Not Available [facility] ([facility]) [address] [place], [address], 06/22/2025 10:12:50 06/20/20 25 06/21/2025 CBC WITH DIFFE RENTI AL/PL ATELE T hematocrit 42.4 % 34.0-4 6.6 normal Not Available [facility] ([facility]) [address] [facility], [place], [address], 06/22/2025 10:12:50 06/20/20 25 06/21/2025 CBC WITH DIFFE RENTI AL/PL ATELE T MCV 84 fL 79-97 normal Not Available [facility] ([facility]) [address] [place], [address], 06/22/2025 10:12:50 06/20/20 25 06/21/2025 CBC WITH DIFFE RENTI AL/PL ATELE T MCH 25.0 pg 26.6-3 3.0 below low normal Not Available [facility] ([facility]) [address] [place], [address], 06/22/2025 10:12:50 06/20/20 25 06/21/2025 CBC WITH DIFFE RENTI AL/PL ATELE T MCHC 29.7 g/dL 31.5-3 5.7 below low normal Not Available [facility] ([facility]) [address] [place], [address], 06/22/2025 10:12:50 06/20/20 25 06/21/2025 CBC WITH DIFFE RENTI AL/PL ATELE T RDW 14.2 % 11.7-1 5.4 Not Available [facility] ([facility]) [address] [facility], [place], [address], 06/22/2025 10:12:50 06/20/20 25 06/21/2025 CBC WITH DIFFE RENTI AL/PL ATELE T platelets 299 x10e3 /uL 150-45 0 normal Not Available [facility] ([facility]) [address] [facility], [place], [address], 06/22/2025 10:12:50 06/20/20 25 06/21/2025 CBC WITH DIFFE RENTI AL/PL ATELE T neutrophils 60 % not estab. normal Not Available [facility] ([facility]) [address] [facility], [place], [address], 06/22/2025 10:12:50 06/20/20 25 06/21/2025 CBC WITH DIFFE RENTI AL/PL ATELE T lymphs 30 % not estab. normal Not Available [facility] ([facility]) [address] [facility], [place], [address], 06/22/2025 10:12:50 06/20/20 25 06/21/2025 CBC WITH DIFFE RENTI AL/PL ATELE T monocytes 6 % not estab. normal Not Available [facility] ([facility]) [address] [facility], [place], [address], 06/22/2025 10:12:50 06/20/20 25 06/21/2025 CBC WITH DIFFE RENTI AL/PL ATELE T eos 3 % not estab. normal Not Available [facility] ([facility]) [address] [facility], [place], [address], 06/22/2025 10:12:50 06/20/20 25 06/21/2025 CBC WITH DIFFE RENTI AL/PL ATELE T basos 1 % not estab. normal Not Available [facility] ([facility]) [address] [facility], [place], [address], 06/22/2025 10:12:50 06/20/20 25 06/21/2025 CBC WITH DIFFE RENTI AL/PL ATELE T immature cells ANALYTICAL RESEARCH CHEMIST Not Available [facility] ([facility]) [address] [place], [address], 06/22/2025 10:12:50 06/20/20 25 06/21/2025 CBC WITH DIFFE RENTI AL/PL ATELE T neutrophils (absolute) 4.9 x10e3 /uL 1.4-7. 0 normal Not Available [facility] ([facility]) [address] [place], [address], 06/22/2025 10:12:50 06/20/20 25 06/21/2025 CBC WITH DIFFE RENTI AL/PL ATELE T lymphs (absolute) 2.5 x10e3 /uL 0.7-3. 1 normal Not Available [facility] ([facility]) [address] [place], [address], 06/22/2025 10:12:50 06/20/20 25 06/21/2025 CBC WITH DIFFE RENTI AL/PL ATELE T monocytes(ab solute) 0.5 x10e3 /uL 0.1-0. 9 normal Not Available [facility] ([facility]) [address] [place], [address], 06/22/2025 10:12:50 06/20/20 25 06/21/2025 CBC WITH DIFFE RENTI AL/PL ATELE T eos (absolute) 0.3 x10e3 /uL 0.0-0. 4 normal Not Available [facility] ([facility]) [address] [place], [address], 06/22/2025 10:12:50 06/20/20 25 06/21/2025 CBC WITH DIFFE RENTI AL/PL ATELE T baso (absolute) 0.1 x10e3 /uL 0.0-0. 2 normal Not Available [facility] ([facility]) [address] [facility], [place], [address], 06/22/2025 10:12:50 06/20/20 25 06/21/2025 CBC WITH DIFFE RENTI AL/PL ATELE T immature granulocytes 0 % not estab. Not Available [facility] ([facility]) [address] [facility], [place], [address], 06/22/2025 10:12:50 06/20/20 25 06/21/2025 CBC WITH DIFFE RENTI AL/PL ATELE T immature grans (abs) 0.0 x10e3 /uL 0.0-0. 1 Not Available [facility] ([facility]) [address] [facility], [place], [address], 06/22/2025 10:12:50 06/20/20 25 06/21/2025 CBC WITH DIFFE RENTI AL/PL ATELE T NRBC ANALYTICAL RESEARCH CHEMIST Not Available [facility] ([facility]) [address] [facility], [place], [address], 06/22/2025 10:12:50 06/20/20 25 06/21/2025 CBC WITH DIFFE RENTI AL/PL ATELE T hematology comments: ANALYTICAL RESEARCH CHEMIST Not Available [facility] ([facility]) [address] [facility], [place], [address], 06/22/2025 10:12:50 06/20/20 25 06/21/2025 COMP. METAB OLIC PANEL (14) glucose 104 mg/dL 70-99 above high normal Not Available [facility] ([facility]) [address] [place], [address], 06/22/2025 10:12:50 06/20/20 25 06/21/2025 COMP. METAB OLIC PANEL (14) BUN 11 mg/dL 6-20 normal Not Available [facility] ([facility]) [address] [place], [address], 06/22/2025 10:12:50 06/20/20 25 06/21/2025 COMP. METAB OLIC PANEL (14) creatinine 0.89 mg/dL 0.57-1 .00 normal Not Available [facility] ([facility]) [address] [facility], [place], [address], 06/22/2025 10:12:50 06/20/20 25 06/21/2025 COMP. METAB OLIC PANEL (14) eGFR 88 mL/mi n/1.7 3 >59 normal Not Available [facility] ([facility]) [address] [facility] [place], [address], 06/22/2025 10:12:50 06/20/20 25 06/21/2025 COMP. METAB OLIC PANEL (14) BUN/creatini ne ratio 12 9-23 normal Not Available [facility] ([facility]) [address] [facility], [place], [address], 06/22/2025 10:12:50 06/20/20 25 06/21/2025 COMP. METAB OLIC PANEL (14) sodium 138 mmol/ L 134-14 4 normal Not Available [facility] ([facility]) [address] [facility], [place], [address], 06/22/2025 10:12:50 06/20/20 25 06/21/2025 COMP. METAB OLIC PANEL (14) potassium 4.6 mmol/ L 3.5-5. 2 normal Not Available [facility] ([facility]) [address] [facility], [place], [address], 06/22/2025 10:12:50 06/20/20 25 06/21/2025 COMP. METAB OLIC PANEL (14) chloride 103 mmol/ L 96-106 normal Not Available [facility] ([facility]) [address] [facility] [place], [address], 06/22/2025 10:12:50 06/20/20 25 06/21/2025 COMP. METAB OLIC PANEL (14) carbon dioxide, total 20 mmol/ L 20-29 normal Not Available [facility] ([facility]) [address] [facility], [place], [address], 06/22/2025 10:12:50 06/20/20 25 06/21/2025 COMP. METAB OLIC PANEL (14) calcium 8.9 mg/dL 8.7-10 .2 normal Not Available [facility] ([facility]) [address] [facility], [place], [address], 06/22/2025 10:12:50 06/20/20 25 06/21/2025 COMP. METAB OLIC PANEL (14) protein, total 6.8 g/dL 6.0-8. 5 normal Not Available [facility] ([facility]) [address] [facility], [place], [address], 06/22/2025 10:12:50 06/20/20 25 06/21/2025 COMP. METAB OLIC PANEL (14) albumin 4.0 g/dL 3.9-4. 9 normal Not Available [facility] ([facility]) [address] [facility], [place], [address], 06/22/2025 10:12:50 06/20/20 25 06/21/2025 COMP. METAB OLIC PANEL (14) globulin, total 2.8 g/dL 1.5-4. 5 Not Available [facility] ([facility]) [address] [facility], [place], [address], 06/22/2025 10:12:50 06/20/20 25 06/21/2025 COMP. METAB OLIC PANEL (14) bilirubin, total <0.2 mg/dL 0.0-1. 2 Not Available [facility] ([facility]) [address] [facility], [place], [address], 06/22/2025 10:12:50 06/20/20 25 06/21/2025 COMP. METAB OLIC PANEL (14) alkaline phosphatase 95 IU/L 44-121 normal Not Available [facility] ([facility]) [address] [place], [address], 06/22/2025 10:12:50 06/20/20 25 06/21/2025 COMP. METAB OLIC PANEL (14) AST (SGOT) 19 IU/L 0-40 normal Not Available [facility] ([facility]) [address] [place], [address], 06/22/2025 10:12:50 06/20/20 25 06/21/2025 COMP. METAB OLIC PANEL (14) ALT (SGPT) 17 IU/L 0-32 normal Not Available [facility] ([facility]) [address] [place], [address], 06/22/2025 10:12:50 06/20/20 25 06/21/2025 LIPID PANEL cholesterol, total 210 mg/dL 100-19 9 above high normal Not Available [facility] ([facility]) [address] [place], [address], 06/22/2025 10:12:51 06/20/20 25 06/21/2025 LIPID PANEL triglyceride s 92 mg/dL 0-149 normal Not Available [facility] ([facility]) [address] [place], [address], 06/22/2025 10:12:51 06/20/20 25 06/21/2025 LIPID PANEL HDL cholesterol 45 mg/dL >39 normal Not Available [facility] ([facility]) [address] [place], [address], 06/22/2025 10:12:51 06/20/20 25 06/21/2025 LIPID PANEL VLDL cholesterol gabby 17 mg/dL 5-40 Not Available [facility] ([facility]) [address] [place], [address], 06/22/2025 10:12:51 06/20/20 25 06/21/2025 LIPID PANEL LDL chol calc ([facility]) 148 mg/dL 0-99 above high normal Not Available [facility] ([facility]) [address] [facility], [place], [address], 06/22/2025 10:12:51 06/20/20 25 06/21/2025 LIPID PANEL LDL calc comment: ANALYTICAL RESEARCH CHEMIST Not Available [facility] ([facility]) [address] [facility], [place], [address], 06/22/2025 10:12:51 06/20/20 25 06/21/2025 QUANT IFERO N-TB GOLD PLUS quantiferon incubation Incuba tion perfor med. Not Available [facility] ([facility]) [address] [facility], [place], [address], 06/22/2025 10:12:51 06/20/20 25 06/21/2025 QUANT IFERO N-TB GOLD PLUS quantiferon criteria Commen t Quant iFERO N-TB Gold Plus is a quali tativ e indir ect test for M tuber culos is infec tion (incl uding disea se) and is inten ded for use in conju nctio n with risk asses sment , radio graph y, and other medic al and diagn ostic evalu ation s. The Quant iFERO N-TB Gold Plus resul t is deter mined by subtr actin g the Nil value from eithe r TB antig en (Ag) value . The Mitog en tube serve s as a contr ol for the test. Not Available [facility] ([facility]) [address] [facility], [place], [address], 06/22/2025 10:12:51 06/20/20 25 06/22/2025 QUANT IFERO N-TB GOLD PLUS quantiferon TB1 Ag value 0.06 IU/mL Not Available [facility] ([facility]) [address] [place], [address], 06/22/2025 10:12:51 06/20/20 25 06/22/2025 QUANT IFERO N-TB GOLD PLUS quantiferon TB2 Ag value 0.10 IU/mL Not Available [facility] ([facility]) [address] [facility], [place], [address], 06/22/2025 10:12:51 06/20/20 25 06/22/2025 QUANT IFERO N-TB GOLD PLUS quantiferon nil value 0.02 IU/mL Not Available [facility] ([facility]) [address] [facility], [place], [address], 06/22/2025 10:12:51 06/20/20 25 06/22/2025 QUANT IFERO N-TB GOLD PLUS quantiferon mitogen value >10.00 IU/mL Not Available [facility] ([facility]) [address] [facility], [place], [address], 06/22/2025 10:12:51 06/20/20 25 06/22/2025 QUANT IFERO N-TB GOLD PLUS quantiferon- TB gold plus Negati ve negati ve No respo nse to M martin palafox is antig ens detec gris. Infec tion with M martin famos is is unlik radha, but high risk indiv idual s shoul d be consi dered for addit ional testi ng (ATS/ IDSA/ CDC Clini gabby Pract ice Guide lines , 2017) . The refer ence range is an Antig en minus Nil resul t of <0.35 IU/mL . Chemi lumin escen ce immun oassa y metho dolog y Not Available [facility] ([facility]) [address] [facility], [place], [address], 06/22/2025 10:12:51 10/31/20 24 10/31/2024 US, trans vagin al No observ ation record ed. [email or web address] [place] [employer] [address] [facility] , [place], [address], 01/06/2025 13:59:42 11/01/20 US, trans vagin al No observ ation record ed. [email or web address] [place] [employer] [address] [place] [address] , [place], [address], 06/29/2025 11:03:31 11/03/20 24 10/31/2024 US, trans vagin al No observ ation record ed. [email or web address] [place] [employer] [address] [place] [address] , [place], [address], 11/03/2024 12:40:57 Result Notes None recorded. Problems Name Problem SNOMED Code Status Onset Date Resolution Date Notes Provider Name and Address Organization Details Recorded Time Suspecte d COVID-19 264293529 Completed 201912/15/2022 Removal Reason: old diagnosi s Meri Selene null, [place] - [facility] 10:27:13 Morbid obesity 785663803 Active 2022 Anyi Varma null, [place] - [facility] 08:33:19 Hidraden itis suppurat enrique [id number] Active 2022 Anyi Varma null, [place] - [facility] 08:33:16 Female urinary stress incontin ence 79104023 Active 2022 Carly Sanchez APRN [address], [place], [address] , [place] - [facility] 08:59:39 Abnormal uterine bleeding [id number] 100 Active 2023 Terrie Julian-Evan becker DO [address], [place], [address] , [place] [facility] 4 14:08:50 Problem Notes None recorded. Procedures Surgical History Date Name Laterality Status Provider Name and Address Organization Details Recorded Time 10/21/20 Date of Last Pap Smear completed Carly Sanchez APRN [address], [place], [address], [place] - [facility] 10/26/2023 13:07:40 10/27/20 23 I&D completed Conrad Solis, DIGITAL TRAFFIC COORDINATOR [address], [place], [address], [place] [facility] 09/18/2023 13:17:50 06/22/20 20 Systolic B/P less than 130 mm Hg completed Roseanne Fariba [place] - [facility] 06/22/2020 14:09:45 06/22/20 20 Diastolic B/P less than 80 mm Hg completed Roseanne Fariba [place] [facility] 06/22/2020 14:09:47 03/21/20 20 IUD Removal completed Terrie Wilkins [place] [facility] 03/16/2020 16:38:39 03/21/20 20 IUD Insertion (Mirena) completed Milagro Medina, DIGITAL TRAFFIC COORDINATOR [address], [place], [address], [place] [facility] 03/21/2020 10:20:44 03/21/20 20 removal of intrauterine device completed Terrie Wilkins [place] [facility] 03/21/2020 09:58:37 03/21/20 20 insertion of intrauterine contraceptive device completed Terrie Wilkins [place] [facility] 03/21/2020 09:58:45 03/28/20 15 IUD Insertion completed Milagro Medina, DIGITAL TRAFFIC COORDINATOR [address], [place], [address], [place] [facility] 03/14/2020 11:26:30 01/18/20 15 section completed Anyi Varma [place] [facility] 10/21/2023 08:37:01 repair of inguinal hernia completed Jolie Cabrera [place] [facility] 02/01/2020 08:35:59 Imaging Results None recorded. Procedure Notes None recorded. Medical Equipment None Reported. Allergies No known drug allergies Medications Name Sig Start Date Stop Date Status Note LastModified by Organization Details LastModified Time blood pressu solution kit 09/18 completed Not Available Not Available Not Available mucus relief max 1200mg tab TAKE 1 TABLET BY MOUTH EVERY 12 HOURS 06/13 completed Not Available Not Available Not Available Prescript ion - Prior Authoriza tion Request active Not Available Not Available Not Available mucus er 600mg tab TAKE 1 TO 2 TABLETS BY MOUTH TWICE DAILY NEEDED FOR CONGESTI ON 06/13 completed Not Available Not Available Not Available amoxicill in 500 mg capsule take 1 capsule (500 mg) by oral route every 12 hours for 10 days 01/01 completed amoxicil keira 500 mg oral capsule; Prescrib e Status: Prescrib ed on: 12/01/19 15 1:20PM;D iscontin ued Status: Disconti nued on: 01/01/20 2:05PM;U ser: [email or web address]; Est. Completi on: 12/11/19 15;Pharm [email or web address] ied: 12/01/19 15 1:20PM Not Available Not Available Not Available Mirena 21 mcg/24 hr (up to 8 years) 52 mg intrauter ine device remove Mirena IUD in 5 years 2019 active Not Available Not Available Not Avai lable metformin 500 mg tablet Take 1 tablet every day by oral route. 07/18 completed Not Available Not Available Not Available promethaz ine-DM 6.25 mg-15 mg/5 mL oral syrup TAKE 5 ML BY MOUTH EVERY 4 HOURS NEEDED FOR COUGH 04/15 completed Not Available Not Available Not Available prednison e 10 mg tablet TAKE 1 TABLET BY MOUTH TWICE DAILY FOR 5 DAYS 12/25 completed Not Available Not Available Not Available Delsym 12 hour 30 mg/5 mL oral suspensio n,extende d release Take 10 mL every 12 hours by oral route. 02/27 completed Not Available Not Available Not Available clindamyc in HCl 300 mg capsule TAKE 1 CAPSULE BY MOUTH THREE TIMES DAILY 07/18 completed Not Available Not Available Not Available Anusol-HC 2.5 % rectal cream with applicato r apply by rectal route As needed 07/27 completed Anusol-H C 2.5 % rectal cream;Pr escribe Status: Prescrib ed on: 01/31/20 15 9:46AM;D iscontin ued Status: Disconti nued on: 07/27/20 3:59PM;U ser: [email or web address]; Indicati on: Hemorrho ids - ([id number] );Soledadr Dianne fied: 01/31/20 15 9:46AM Not Available Not Available Not Available azithromy merritt 250 mg tablet TAKE 2 TABLETS BY MOUTH ON DAY 1, AND THEN TAKE 1 TABLET BY MOUTH ONCE A DAY ON DAY 2 THROUGH DAY 5 09/18 completed Not Available Not Available Not Available ibuprofen 800 mg tablet Take 1 tablet 3 times a day by oral route for 7 days. 05/22 completed Not Available Not Available Not Available benzonata te 200 mg capsule TAKE 1 CAPSULE BY MOUTH THREE TIMES DAILY FOR 7 DAYS 09/18 completed Not Available Not Available Not Available prednison e 20 mg tablet Take 1 tablet twice a day by oral route for 5 days. 04/23 completed Not Available Not Available Not Available clindamyc in 1 %-benzoyl peroxide 5 % topical gel apply to the affected area(s) by topical route 2 times per day in the morning and evening for 30 days 05/28 completed clindamy merritt-denae oyl peroxide 1-5 % topical gel;Pres cribe Status: Prescrib ed on: 02/28/20 16 11:53AM; User: alissa Warneri on: 05/28/20 16;Pharm Stephanie ied: 02/28/20 16 11:53AM Not Available Not Available Not Available sulfameth oxazole 800 mg-trimet hoprim 160 mg tablet TAKE 1 TABLET BY MOUTH EVERY 12 HOURS FOR 10 DAYS 06/20 completed Not Available Not Available Not Available Sudogest 30 mg tablet take 1-2 tablets by oral route 4 times a day as needed 11/26 completed Sudogest 30 mg oral tablet;P rescribe Status: Prescrib ed on: 07/27/20 15 4:45PM;D iscontin ued Status: Disconti nued on: 11/26/19 16 1:21PM;U ser: gillisa; Indicati on: Nasal Congesti on - ([id number] );Wilbur Dean fied: 07/27/20 15 4:45PM Not Available Not Available Not Available amoxicill in 875 mg tablet take 1 tablet (875 mg) by oral route every 12 hours for 14 days 02/27 completed amoxicil keira 875 mg oral tablet;P rescribe Status: Prescrib ed on: 11/26/19 16 2:07PM;D iscontin ued Status: Disconti nued on: 02/28/20 16 11:35AM; User: [email or web address]; Est. Completi on: 12/10/19 16;Indic ation: Acute maxillar y sinusiti s, recurren ce not specifie d - (461.0); Pharmacy Verified : 11/26/19 16 2:07PM Not Available Not Available Not Available clindamyc in 1 % topical gel APPLY A THIN LAYER TO THE AFFECTED AREA (VAGINA) BY TOPICAL ROUTE 2 TIMES PER DAY as needed 12/16 completed Not Available Not Available Not Available benzonata te 100 mg capsule Take 1 capsule 3 times a day by oral route as needed for 10 days. 03/14 completed Not Available Not Available Not Available cephalexi n 500 mg capsule TAKE 1 CAPSULE BY MOUTH 4 TIMES DAILY FOR 7 DAYS 12/16 completed Not Available Not Available Not Available ferrous sulfate 325 mg (65 mg iron) tablet take 1 tablet (325 mg) by oral route up to 3 times per day as tolerate d-OTC if availabl e 07/27 completed ferrous sulfate 325 mg (65 mg iron) oral tablet;P rescribe Status: Prescrib ed on: 04/30/20 15 10:52AM; Disconti nued Status: Disconti nued on: 07/27/20 15 3:59PM;U ser: [email or web address]; Pharmacy Verified : 04/30/20 15 10:52AM Not Available Not Available Not Available Proctofoa m HC 1 %-1 % insert 1 applicat orful pr qid and after BM and some external ly also, or suppleme nt with the Prep H Rx 07/27 completed Proctofo am HC 1-1 % rectal foam;Pre scribe Status: Prescrib ed on: 01/31/20 15 4:29PM;D iscontin ued Status: Disconti nued on: 07/27/20 15 3:59PM;U ser: [email or web address]; Pharmacy Verified : 01/31/20 15 4:29PM Not Available Not Available Not Available monteluka st 10 mg tablet Take 1 tablet every day by oral route for 30 days. 06/13 completed Not Available Not Available Not Available mupirocin 2 % topical ointment APPLY OINTMENT TOPICALL Y TO AFFECTED AREA THREE TIMES DAILY 06/15 completed Not Available Not Available Not Available methylpre dnisolone 4 mg tablets in a dose pack TAKE BY MOUTH DIRECTED ON INSIDE OF PACKAGE 09/18 completed Not Available Not Available Not Available albuterol sulfate HFA 90 mcg/actua tion aerosol inhaler Inhale 2 puffs every 4 hours by inhalati on route as needed. 06/13 completed Not Available Not Available Not Available brompheni ramine-ps eudoephed rine-DM 2 mg-30 mg-10 mg/5 mL oral syrup 02/27 completed Not Available Not Available Not Available fluticaso ne propionat e 50 mcg/actua tion nasal spray,olga pension [place] 1 spray every day by intranas al route for 14 days. 12/15 completed Not Available Not Available Not Available doxycycli ne hyclate 100 mg tablet TAKE 1 TABLET BY MOUTH TWICE DAILY 06/13 completed Not Available Not Available Not Available Hibiclens 4 % topical liquid Cleanse affected areas with liquid daily 06/13 completed Not Available Not Available Not Available loratadin e 10 mg tablet TAKE 1 TABLET BY MOUTH ONCE DAILY IN THE MORNING FOR 30 DAYS 08/26 completed Not Available Not Available Not Available amoxicill in 875 mg-potass ium clavulana te 125 mg tablet Take 1 tablet every 12 hours by oral route for 7 days. 10/21 completed Not Available Not Available Not Available cholecalc iferol (vitamin D3) 25 mcg (1,000 unit) capsule TAKE 1 CAPSULE BY MOUTH ONCE DAILY 04/23 completed Not Available Not Available Not Available hydrocodo ne 5 mg-ibupro fen 200 mg tablet take 1 tablet by oral route every 6 hours as needed 11/27 completed hydrocod one-ibup rofen 5-200 mg oral tablet;R ecorded Status: Recorded on: 10/30/20 14 1:57PM;D iscontin ued Status: Disconti nued on: 11/27/19 15 10:49AM; User: [email or web address] Not Available Not Available Not Available 27 mg iron-0.8 mg tablet take 1 tablet by oral route once daily 01/30 completed 27-0.8 mg oral tablet;R ecorded Status: Recorded on: 07/10/20 14 10:11AM; Disconti nued Status: Disconti nued on: 01/31/20 15 4:02PM;U ser: [email or web address]; Indicati on: Pregnanc y - ([id number]) Not Available Not Available Not Available guaifenes in ER 1,200 mg tablet, extended release 12 hr Take 1 tablet every 12 hours by oral route for 10 days. 09/18 completed Not Available Not Available Not Available diclofena c 1 % topical gel APPLY 2 GRAMS TO THE AFFECTED AREA(S) BY TOPICAL ROUTE 4 TIMES PER DAY 04/23 completed Not Available Not Available Not Available Stool Softener 100 mg tablet take 1 tablet (100 mg) by oral route 2 times per day as needed 07/27 completed Stool Softener 100 mg oral tablet;P rescribe Status: Prescrib ed on: 01/31/20 15 9:46AM;D iscontin ued Status: Disconti nued on: 07/27/20 15 3:59PM;U ser: [email or web address]; Indicati on: Constipa tion - ([id number]);Phar [email or web address] fied: 01/31/20 15 9:46AM Not Available Not Available Not Available Cosentyx Pen 300 mg/2 pens (150 mg/mL) subcutane ous pen injector active Not Available Not Available Not Available Vitals Date Recorded Body height Body mass index (BMI) Body weight Body temperature Heart rate Oxygen saturation Oxygen saturation in Arterial blood by Pulse oximetry Respiratory rate Pain severity - 0-10 verbal numeric rating [Score] - Reported Systolic And Diastolic Provider Name and Address Organization Details Last Updated DateTime 5 167.64 cm 48 kg/m2 736343. 33 g 98 [degF] 87 /min 98 % 98 % 18 /min 5 116/82 mm[Hg] Malia HEREDIA - [facility] 5 08:28:10 Date Recorded Body height Body mass index (BMI) Body weight Heart rate Oxygen saturation Oxygen saturation in Arterial blood by Pulse oximetry Respiratory rate Pain severity - 0-10 verbal numeric rating [Score] - Reported Body temperature Systolic And Diastolic Provider Name and Address Organization Details Last Updated DateTime 5 167.64 cm 48.5 kg/m2 234957. 81 g 88 /min 99 % 99 % 18 /min 0 97.2 [degF] 132/84 mm[Hg] Malia Monk [place] - [facility] 5 09:56:46 Date Recorded Body height Body mass index (BMI) Body weight Heart rate Oxygen saturation Oxygen saturation in Arterial blood by Pulse oximetry Respiratory rate Systolic And Diastolic Provider Name and Address Organization Details Last Updated DateTime 5 167.64 cm 48.4 kg/m2 867063. 71 g 76 /min 98 % 98 % 18 /min 124/74 mm[Hg] Ninfa Casey [place] - [facility] 5 08:49:16 Date Recorded Body height Pain severity - 0-10 verbal numeric rating [Score] - Reported Body mass index (BMI) Body weight Systolic And Diastolic Provider Name and Address Organization Details Last Updated DateTime 10/13/2024 167.64 cm 3 48.9 kg/m2 212945. 21 g 123/82 mm[Hg] Taylor Baeza [place] - [facility] 4 13:51:38 Date Recorded Body height Pain severity - 0-10 verbal numeric rating [Score] - Reported Body mass index (BMI) Body weight Systolic And Diastolic Provider Name and Address Organization Details Last Updated DateTime 10/31/2024 167.64 cm 0 49.4 kg/m2 159993. 98 g 148/84 mm[Hg] Taylor Baeza [place] - [facility] 4 09:23:32 Social History Question Answer Notes LastModified by Organizat ion Details LastModified Time Tobacco Smoking Status Current Every Day Smoker Jolie daigle [place] - [facility] 02/01/2020 08:34:29 Do You Have An Advance Directive? No Information not available 09/18/2023 Are You Blind Or Do You Have Difficulty Seeing? No Information not available 11/12/2020 Is Blood Transfusion Acceptable In An Emergency? Yes Information not available 11/12/2020 What Is Your Level Of Caffeine Consumption? Heavy Information not available 02/01/2020 How Much Tobacco Do You Chew? None Information not available 02/01/2020 In The 14 Days Before Symptom Onset, Have You Had Close Contact With A Laboratory-confi rmed COVID-19 While That Case Was Ill? No [email or web address] Information not available 10/21/2023 In The 14 Days Before Symptom Onset, Have You Had Close Contact With A Person Who Is Under Investigation For COVID-19 While That Person Was Ill? No Information not available 10/21/2023 Have You Been To An Area Known To Be High Risk For COVID-19? No [email or web address] Information not available 10/21/2023 Are You Deaf Or Do You Have Serious Difficulty Hearing? No Information not available 11/12/2020 What Type Of Diet Are You Following? REGULAR Information not available 02/01/2020 Which Illicit Or Recreational Drugs Have You Used? None Information not available 02/01/2020 Have You Processed Blood Or Body Fluids From An Ebola Virus Disease Patient Without Appropriate PPE? No [email or web address] Information not available 10/21/2023 Do You Reside In Or Have You Traveled To An Area Where Ebola Virus Transmission Is Active? No [email or web address] Information not available 10/21/2023 What Is The Highest Grade Or Level Of School You Have Completed Or The Highest Degree You Have Received? [id number] Information not available 09/18/2023 Swimming/diving Yes Informati on not available 02/01/2020 Have There Been Any Changes To Your Family Or Social Situation? No Information not available 09/18/2023 What Is The Fluoride Status Of Your Home? Unknown Information not available 09/18/2023 Hard Of Hearing Or Deaf In One Or Both Ears? No Information not available 02/01/2020 Have You Recently Or Are You Planning To Travel To An Area With Zika Virus? No [email or web address] Information not available 10/21/2023 Legally Blind In One Or Both Eyes? No Information not available 02/01/2020 Live Alone Or With Others? With Others Information not available 02/01/2020 Do You Have A Medical Power Of Stock Holder? No Information not available 09/18/2023 What Was The Date Of Your Most Recent Tobacco Screening? 05/22/2025 Information not available 05/22/2025 How Many Children Do You Have? 2 Information not available 02/01/2020 What Is Your Current Pack Years? 10-19packyears [email or web address] Information not available 10/21/2023 Performs Monthly Self-breast Exam? No Information not available 11/12/2020 Do You Use Protection During Sex? Always [email or web address] Information not available 10/21/2023 Do You Use Protection Against STDs? No [email or web address] Information not available 10/21/2023 What Is Your Relationship Status? [email or web address] Information not available 10/21/2023 Seat Belts Used Routinely Yes Information not available 02/01/2020 Are You Sexually Active? Yes Information not available 02/01/2020 Do You Have Smoke And Carbon Monoxide Detectors In Your Home? Yes Information not available 09/18/2023 At What Age Did You Start Smoking Tobacco? 19 [email or web address] Information not available 10/21/2023 Are You Passively Exposed To Smoke? Yes Information not available 02/01/2020 How Much Tobacco Do You Smoke? 0.5 PPD Information not available 02/01/2020 General Stress Level Medium Information not available 02/01/2020 Has Tobacco Cessation Counseling Been Provided? Yes [email or web address] Information not available 10/21/2023 On What Date Was Tobacco Cessation Counseling Provided? 06/15/2025 Information not available 06/15/2025 How Many Years Have You Smoked Tobacco? 13 Off And On [email or web address] Information not available 10/21/2023 Do You Have Difficulty Walking Or Climbing Stairs? No Information not available 11/12/2020 What Contraceptive Method Was Reported At Start Of This Visit? IUD With Progestin [email or web address] Information not available 10/21/2023 Do You Want To Talk About Contraception Or Prevention During Your Visit Today? No - I Do Not Want To Talk About Contraception Today Because I Am Here For Something Else [email or web address] Information not available 10/21/2023 Do You Have Any Future Plans To Get ? No, I Don't Want To Become [email or web address] Information not available 10/21/2023 Sex: Female Functional Status Question Answer Note LastModified by Organizat ion Details LastModified Time How many times per week do you consume alcohol? 2 times a year maybe Information not available 10/21/2023 Do you or have you ever used smokeless tobacco? Never used smokeless tobacco Information not available 02/01/2020 Are you currently employed? Yes Information not available 02/01/2020 Do you have transportation difficulties? No Information not available 09/18/2023 Are you able to care for yourself independently? Yes Information not available 02/01/2020 Do you have difficulty dressing, bathing, grooming, or toileting? No Information not available 11/12/2020 Do you or have you ever used e-cigarettes or vape? Never used electronic cigarettes Information not available 02/01/2020 What is your exercise level? None Information not available 02/01/2020 Do you use any illicit or recreational drugs? No Information not available 09/18/2023 Do you or have you ever used any other forms of tobacco or nicotine? No Information not available 09/18/2023 What is your level of alcohol consumption? Occasional 2 times a year maybe [email or web address] Information not available 10/21/2023 What is your status? Not [email or web address] Information no t available 10/21/2023 Are you able to walk independently without assistance or assistive devices? [email or web address] Information not available 02/01/2020 Do you have difficulty doing errands alone? 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 [id number] Information not available 09/18/2023 Do you have difficulty concentrating, remembering or making decisions? No Information no t available 11/12/2020 Family History Relationship Description Onset Age of this Age Resolved Age Notes LastModified by Organization Details LastModified Time Father Diabetes mellitus Not available 2019 08:34:00 Father Malignant neoplasm of skin [email or web address] Not available 2024 08:33:37 Maternal Grandmother Heart disease Not available 2019 08:34:15 Paternal Grandfather Heart disease Not available 2019 08:34:21 Medical History Condition Response Coronary Artery Disease N Blood Diseases N Hyperthyroidism N Rheumatoid arthritis N Blood Transfusion N amputation N Colonoscopy N COPD N Depression N Pneumonia N Incontinence N Edema N Anxiety Disorder N Obesity N Restless Leg Syndrome N Infertility N Polyps N Carpal Tunnel N Mental Disorder N Acid Reflux (GERD) N Stroke N Varicosities N Tendonitis N Skin Cancer N Fibromyalgia N Anal Fissure N Irritable Bowel Syndrome N Kidney Disease N Hospitalizations Y Gallstones N Goiter N Acne N Skin Problems N Eating Disorder N Nguyen's Esophagus N Hypertriglyceridemia N MRSA exposure N Constipation N Embolism N Deviated Septum N Tuberculosis N Myocardial Infarction N Asthma N Vertigo N Pulmonary Embolism N Chronic Ear Infections N Chicken Pox N [place] Disease N Lung Disease N Defects or Inherited Disease N Developmental or Behavioral Disorders N Difficulty Swallowing N Ovarian Cyst N Anesthesia Complications N Testosterone Deficiency N Meniere's disease N Head Injury/Concussion N Interstitial Cystitis N Congenital Anomalies N Hypoglycemia N Blood clot N Cellulitis N Endometriosis N Fracture N Liver Disease N Panic Disorder N Schizophrenia N Spina Bifida N Parkinson's Disease N STI N Angina N Thyroid Problems N GI Problems N ADD/ADHD N Anemia N Multiple Sclerosis N Lumbago N Psychiatric Illness N Diabetes N Congestive Heart Failure (CHF) N Hyperlipidemia N Syncope N Abuse/Domestic Violence N Attention Deficient Disorder N Ulcerative colitis N Aneurysm N Bronchitis N Heart Disease N Suicidal Ideation N Pre-Eclampsia N Hypertension N Pancreatitis N Other N Gout N Atrial Fibrillation N congenital heart disease N Kidney Stones N Erectile Dysfunction N Skin Lesions N Murmur N Alzheimer's Disease N Migraine Headaches N Tobacco Abuse N Muscle, Joint, or Bone Problems N Hemorrhoids N Vision or Eye Problems N Arthritis N Cancer N Crohn's Disease N Hypercholesterolemia N Headaches N Heart Problems N Ear or Hearing Problems N Kidney or Bladder Problems N Vitamin B12 Deficiency N AIDS/HIV N Mitral Valve Disorders N Hepatitis N Thyroid Cancer N Neuropathy N History of DVT N Herniated Disc N Autism Spectrum Disorder (ASD) N Thrombophilias N Breast Cancer N Hernia N Plantar Fasciitis N Hospital Admission Other Than N Hypothyroidism N Breast Problem N Vitamin D Deficiency N Bladder or Kidney Problems N Colorectal Cancer N Concussion N Allergies/Hayfever N Osteoarthritis N Disc Protrusion N Esophagitis N Abnormal PAP N Mental Illness N Ovarian Cancer N Bedwetting N Degenerative Disc Disease N Seizures/Epilepsy N Insomnia N Eczema N Diverticulitis N Dementia N Cerebrovascular Disease N Depression N Guillain-[place] N Sleep Apnea N Osteoporosis N Gynecological History Statement/Question Response Abnormal Pap N Flow Light Date of Last Mammogram Date of LMP 10/11/2024 STIs/STDs N HPV Vaccine N Current Control Method IUD Age at Menarche 15 Age at First Child 22 Last Annual Exam/Provider 10/21/23 Date of Last Colonoscopy Most Recent Bone Density Sexually Active? Y Date of Last Cervical Culture 03/14/2020 Menses Monthly No Date of Last Pap Smear 10/21/2023 Sexual Problems? N Obstetrics History GPAL:G 2 P 2 0 0 2 Type Value Full Term 2 Living 2 Total 2 Immunizations Vaccine Type Date Status Note Provider Name and Address Organization Details Recorded Time Influenza, split virus, quadrivalent, preservative 10/21/20 cancelled patient objection Carly Sanchez, DIGITAL TRAFFIC COORDINATOR [address], [place], [address], [place] [facility] 10/21/2023 08:48:45 COVID-19, mRNA, LNP-S, PF, 30 mcg/0.3 mL dose 10/09/20 21 completed Meri Stears null, [place] - [facility] 12/15/2022 10:26:19 COVID-19, mRNA, LNP-S, PF, 30 mcg/0.3 mL dose 09/17/20 21 completed Meri Stears null, [place] - [facility] 12/15/2022 10:26:19 Past Encounters Encounter ID Performer Location Encounter Start Date Encounter Closed Date Diagnosis/Indication Diagnosis SNOMED-CT Code Diagnosis ICD10 Code Diagnosis IMO Codes Diagnosis Note [id number] [facility] [address] [place] [address] 10/30/2014 00:00:00 [id number] [facility] [address] [place] [address] 11/06/2014 00:00:00 [id number] [facility] [address] [place] [address] 12/01/2014 00:00:00 [id number] [facility] [address] [place] [address] 03/22/2015 00:00:00 [id number] [facility] [address] [place] [address] 03/28/2015 00:00:00 [id number] [facility] [address] [place] [address] 01/01/2015 00:00:00 [id number] [facility] [address] [place] [address] 04/30/2015 00:00:00 [id number] [facility] [address] [place] [address] 07/27/2015 00:00:00 [id number] [facility] [address] [place] [address] 01/05/2015 00:00:00 [id number] [facility] [address] [place] [address] 06/19/2014 00:00:00 [id number] [facility] [address] [place] [address] 06/26/2014 00:00:00 [id number] [facility] [address] [place] [address] 07/10/2014 00:00:00 [id number] [facility] [address] [place] [address] 08/29/2014 00:00:00 [id number] [facility] [address] [place] [address] 09/29/2014 00:00:00 [id number] [facility] [address] [place] [address] 10/30/2014 00:00:00 [id number] [facility] [address] [place] [address] 01/05/2015 00:00:00 [id number] [facility] [address] [place] [address] 01/30/2015 00:00:00 [id number] [facility] [address] [place] [address] 02/02/2015 00:00:00 [id number] [facility] [address] [place] [address] 03/02/2015 00:00:00 [id number] [facility] [address] [place] [address] 03/22/2015 00:00:00 [id number] [facility] [address] [place] [address] 11/26/2015 00:00:00 [id number] [facility] [address] [place] [address] 02/28/2016 00:00:00 [id number] Lisy Nix MD [address] [place] [address] 02/01/2020 08:20:35 02/01/2020 08:55:34 Cough 50641778 R05 Rapid flu is negative. Get chest x-rays. Acute bronchitis 2747303 2 J20.9 Take Mucinex and Delsym as prescribed . See us back or go to the Er right away should she gets worse or develops any new symptoms or complaints . Follow up with us in one week and as needed. Influenza vaccination declined 925208407 Z28.21 Patient has declined to get Influenza vaccine despite counsellin g and education [id number] Richa Pitts APRN [address] [place] [address] 02/28/2020 10:56:04 02/28/2020 11:41:49 Acute bronchitis 98193196 J20.9 Instructed patient to follow-up with us on Thursday and let us know if she is not improving - patient agreeable. Cough 05888164 R05 [id number] THEO Ratliff [employer]ATING MANAGER [address] [place] [address] [place] [address] 03/14/2020 10:50:45 03/14/2020 11:56:48 Routine gynecologic examination done 8738169273 9101 Z01.419 Depression screening 171 675300 Z13.89 Hypertensi on screening 131877615 Z13.6 Screening for malignant neoplasm of cervix 652218469 Z12.4 Diet education 18026569 Z71.3 Encourage healthy eating/dec reased fats, sugars, fried foods Counseling 225043623 Z71 .82 Encouraged regular exercise 30-40min/d ay 4-5 days/wk Contracept ion care management 186363914 Z30.[address] Mass of left breast 1224 643183 4554053 N63.20 Body mass index 40+ - severely obese 640294506 Z68.41 Cigarette smoker 3590861 7 F17.065 [id number] Milagro Medina APRN [place] [employer] [address] [place] [address] [place] [address] 03/21/2020 09:29:05 03/21/2020 10:21:29 Replacement of intrauterine contraceptive device 34359308 Z30.191 [id number] Danial Sun MD [address] [place] [address] 06/22/2020 13:58:17 06/22/2020 15:31:41 Body mass index 40+ - severely obese 417023269 Z68.41 Cough variant asthma 409 518063 J45.991 Seasonal a llergic rhinitis 237501920 J30.2 Acute sinusitis 25150437 J01.90 [id number] Kelsey Renee MD [address] [place] [address] 10/01/2020 13:37:34 10/01/2020 16:01:46 Suspected COVID-19 740185687 Z03.89 [id number] Kelsey Renee MD [address] [place] [address] 10/02/2020 12:37:37 10/02/2020 13:17:51 Suspected COVID-19 469081255 Z03.89 [id number] Shanell Tolentino APRN [address] [place] [address] 11/12/2020 16:49:55 11/12/2020 17:29:08 Cystic acne 61671255 L70.0 introduced idea of accutane may discuss further in future Hidradenit is suppurativa 35515757 L73.2 discussed how weight gain, smoking and diet influence HS [id number] THEO Graham[address] [place] [address] 06/13/2021 09:42:05 06/13/2021 10:40:42 Fever 524159902 R50.9 Sneezing 93246361 R06.7 Cough 48535659 R05 Generalize d aches and pains 53555750 R52 Viral screening 41744525 4 Z11.52 Influenza- like symptoms 951073190 R68.89 Nasal congestion 5480693 0 R09.81 [id number] Brenda Geller DO [place] [employer] ESTIMATING MA[employer]GER [address] [place] [address] [place] [address] 08/26/2021 15:31:00 08/26/2021 16:34:54 Abscess of skin and/or subcutaneous tissue 45289226 L02.91 Obesity 576487419 E66.9 Hidradenit is suppurativa 76715463 L73.2 [id number] Brenda Geller DO [place] [employer] ESTIMATING MA[employer]GER [address] [place] [address] [place] [address] 12/16/2021 16:13:20 12/16/2021 16:48:12 Loss of hair 785834470 L65.9 Fatigue 28527519 R53.83 Hidradenit is suppurativa 73887098 L73.2 [id number] Chelita Dick APRN [address] [place] [address] 07/18/2022 08:15:25 07/18/2022 08:43:21 Lateral epicondylitis 179165372 M77.11 Body mass index 40+ - severely obese 689639649 Z68.44 Depression screening 171 477469 Z13.31 PHQ-3 [id number] Conrad Solis APRN [address] [address] 08/05/2022 15:51:31 08/05/2022 16:55:01 Upper respiratory infection 53597050 J06.9 no sign of a bacterial infection. likely viral. viruses can take 7-14 days to run their course.sabina al saline and bulb syringe to remove nasal drainage to help with congestion .monitor temp. Tylenol or Motrin as needed for pain or fever.enco urage fluids, water, Gatorade, power aide, Pedialyte if infant/tod dler/child warm salt water gargleswar m fluidssore throat lozengessl eep elevatedhu midifier/v aporizerfo llow up immediatel y for new or worsening symptoms or no noticeable improvemen t over the next 48-72 hours return thurs for repeat covid test if no improvemen t [id number] Conrad Solis APRN [address] [address] 08/07/2022 15:20:46 08/07/2022 15:55:52 COVID-19 688049888 U07.1 no sign of a bacterial infection. likely viral. viruses can take 7-14 days to run their course. nasal saline and bulb syringe to remove nasal drainage to help with congestion . monitor temp. Tylenol or Motrin as needed for pain or fever. encourage fluids, water, Gatorade, power aide, Pedialyte if /tod dler/child warm salt water gargles warm fluids sore throat lozenges sleep elevated humidifier /vaporizer follow up immediatel y for new or worsening symptoms or no noticeable improvemen t over the next 48-72 hours [id number] Conrad Solis APRN [address] [address] 12/15/2022 10:17:34 12/15/2022 11:22:09 Upper respiratory infection 38455813 J06.9 no sign of a bacterial infection. likely viral. viruses can take 7-14 days to run their course.sabina al saline and bulb syringe to remove nasal drainage to help with congestion .monitor temp. Tylenol or Motrin as needed for pain or fever.enco urage fluids, water, Gatorade, power aide, Pedialyte if /tod dler/child warm salt water gargleswar m fluidssore throat lozengessl eep elevatedhu midifier/v aporizerfo llow up immediatel y for new or worsening symptoms or no noticeable improvemen t over the next 48-72 hours return thurs for repeat covid test if no improvemen t [id number] Carly Dawkins APRN [address] [place] [address] 04/23/2023 13:26:20 04/23/2023 14:02:37 Injury of right ankle [id number] 9511680 S99.911A elevation when not working, daniel bandage, will contact regarding xray. pt is off work for next 3 days. [id number] Eugene Cha APRN [address] [place] [address] 07/29/2023 13:47:36 07/29/2023 14:59:52 Body mass index 40+ - severely obese 135770854 Z68.42 Morbid obesity 746909721 E66.01 Acute sinusitis 81964963 J01.90 Cough 24425535 R05.9 [id number] Conrad Solis APRN [address] [address] 09/18/2023 08:48:04 09/18/2023 09:31:32 Abscess of skin and/or subcutaneous tissue 44077624 L02.91 keep area clean and dryapply ointment and antibiotic s as ordered [id number] THEO Barnhart [employer] ESTIMATING MANAGER [address] [place] [address] [place] [address] 10/21/2023 08:25:32 10/21/2023 09:06:13 Routine gynecologic examination done 0214336311 9101 Z01.419 Depression screening 171 090400 Z13.31 PHQ-9 completed today. Diet education 92307698 Z71.3 Counseling 480092514 Z71 .82 Exercise counselkeira eastman Patient encouraged to exercise 30 minutes 5 days a week. Examinatio n of blood pressure 913372935 Z01.30 Vaccine de clined by patient 9934122725 02 Z28.21 Pt declined flu vaccine today. Screening for malignant neoplasm of cervix 233633262 Z12.4 Z11.3 Z01.419 Intrauteri ne contraceptive device in situ 571711119 Z97.5 Mirena inserted on 03/21/2020. IUD strings noted.Due for removal or replacemen t on or before 03/21/2028. Tobacco user 185923882 Z 72.0 Body mass index 40+ - severely obese 477515115 Z68.42 Morbid obesity 476036028 E66.01 Female uri nary stress incontinence 65838584 N39.3 Discussed keeping a daily urine dairy Blad zachariah Matters A Guide to Managing Overactive Bladder booklet given.Disc ussed Kegel exercises and pelvic floor exercise sheet given. [id number] Carly Dawkins APRN [address] [place] [address] 12/10/2023 14:54:06 12/10/2023 15:33:10 Cough 69446435 R05.9 Influenza caused by Influenza B virus 19459167 J10.1 [id number] Conrad Solis APRN [address] [address] 04/15/2024 08:49:04 04/15/2024 09:30:48 Body mass index 40+ - severely obese 654436444 Z68.42 bmi 48 Morbid obesity 361568386 E66.01 Pain of left hand 001716 7949 15498 M79.642 at this time no overtime until seen by ortho Pain of ri ght elbow joint 8354092774 1711197 M25.361 [id number] Terrie becker DO [place] [employer] ESTIMATING MANAGER [address] [place] [address] [place] [address] 10/13/2024 13:47:27 10/13/2024 14:37:34 Body mass index 40+ - severely obese 576897350 Z68.42 Morbid obesity 677254025 E66.01 Vaccination declined 016 7697550 Z28.21 Seasonal flu vaccine offered and declined Abnormal u terine bleeding 8546562194 9100 N93.9 Bleeding while on IUD. On exam IUD strings seen, noted mild amount of blood per cervical os. Patient concerned about IUD malpositio n. UPT negative. Ibuprofen sent for AUB management . Ultrasound transvagin al for IUD position at next visit. [id number] DO Maria A Matson COST ESTIMATING MANAGER [address] [place] [address] 10/31/2024 08:15:55 10/31/2024 10:11:42 Abnormal uterine bleeding 7801921458 9100 N93.9 Follow up for breakthrou gh bleeding.D id not take ibuprofen and the bleeding stopped on its own. Advised her to take ibuprofen if the bleeding starts again. And if the bleeding is not controlled with ibuprofen, to follow-up with us. Ultrasound showed IUD in correct position. No concerns for embedded IUD or malpositio n Body mass index 40+ - severely obese 515759275 Z68.42 Morbid obesity 184679661 E66.01 Contracept ion care education 480713309 Z30.09 Discussed the risk versus benefits of sterilizat ion procedure versus keeping IUD. Patient is strongly considerin g sterilizat ion procedure like salpingect adriana versus vasectomy. She will discuss further with her and follow-up with us [id number] Conrad Solis DIGITAL TRAFFIC COORDINATOR [address] [address] 05/22/2025 08:22:24 05/22/2025 08:51:55 Abscess 959740241 L02.91 91434 keep area clean and dryapply ointment and antibiotic s as orderedoff work till 05/25/25 Hidradenit is suppurativa 21596338 L73.2 [id number] Conrad Solis DIGITAL TRAFFIC COORDINATOR [address] [address] 06/15/2025 09:31:19 06/15/2025 11:08:13 Exposure to sexually transmissible disorder 962401156 Z20.2 7195159 Body mass index 40+ - severely obese 283902053 Z68.42 bmi 48 Abscess 994684386 L02.91 [id number] will change referral to [place] [id number] Rick Bourne MD [facility] [address] [place] [address] 06/20/2025 08:33:34 06/20/2025 09:30:11 Hidradenitis suppurativa 52314094 L73.2 pt is a Mejias stage 3. She would most likely benefit from a biologic like cosentyx. Health Concerns Section Related Observation LastModified by Organization Detai ls LastModified Time None Recorded Concern Status LastModified by Organization Details LastModified Time None Recorded Advance Directives Directive N: Payers Insurance Date Sequence Insurance Name Policy Number Policy Christianson Covered Member ID Christianson Member ID Guarantor Name 06/20/2025 1 [place] [id number] Natalie Sharp [id number] Nelson Harris Notes Date Note Type Note Provider Name and Address Organization Details Recorded Time 10/13/2024 text/html ROS as noted in the HPI LLQ/pelvic pain and spotting with iud for 2-3 daysthrobbing and vaginal bleedingbright red bleed per vagina, requiring 2 pantiliners per day for the past 2-3 daysLast sexually active this week. No condoms use.Patient exerts herself regularly at work lifting 100+ pounds often throughout the day. Just yesterday, the patient and her were lifting a couch and throwing it around. Patient's overall concern is that she is developing ovarian cysts and has started to bleed abnormally despite IUD. She is concerned about this because her mother went through a hysterectomy for this particular reason around the same age as patient. Terrie Sotomayor, [address], [place], [address], [place] [facility] 10/13/2024 16:33:17 10/31/2024 text/html ROS as noted in the HPI Here for abnormal uterine bleeding follow up with ultrasound.At the last visit, patient had complained on bleeding while on IUD. UPT negative and given ibuprofen for bleeding management but pt did not take it. Her bleeding has stopped. She wonders if she even wants IUD anymore as she may consider a sterilization procedure. She will discuss this further with her partner. Terrie Sotomayor DO [address], [place], [address], [facility] 10/31/2024 09:43:54 05/22/2025 text/html 34 yr old female presents for a red area to left lower abd, has been coming and going for a while but now is painful. Conrad ZunigaTHEO godinez [address], [place], [address], [facility] 05/22/2025 08:50:04 06/15/2025 text/html 34 yr old female presents for std screening. She shared a drink with someone who has herpes- hsv 2 and she is concerned. Conrad ZimmermanTHEO patel [address], [place], [address], [facility] 06/15/2025 10:46:40 06/20/2025 text/html pt nhas hx of deep abcesses in her crease areas since her early teens. She has used doxycycline, topical clindamycin, hibiclens, meformin, all without success. Rick Bourne MD [address], [place], [address], [facility] 06/20/2025 09:20:56 OBGyn Episode No OBEpisode recorded.
--- OUTSIDE RECORDS SUMMARY | 2025-09-13 03:30 | XMS_ITS | Data Portability ---
Author Organization [facility] & [facility]HO[facility] Young ADMIN Address [address] [place] [address] Assessment No assessment recorded. Plan of Treatment Reminders Order Date Submit Date Provider Last Modified By Organization Details Last Modified Time Details Appointments None record ed. Lab None record ed. Referral None record ed. Procedures None record ed. Surgeries None record ed. Imaging None record ed. Medication Orders None record ed. Patient TargetsNo targets recorded. Patient InstructionsNo instructions recorded. Reason for Referral None Reported. Problems No Known Problems Medical Equipment None Reported. Medications Name Sig Start Date Stop Date Status Note LastModified by Organization Details LastModified Time blood pressu solution kit active Not Available Not Available Not Available azithromycin 250 mg tablet TAKE 2 TABLETS BY MOUTH ON DAY 1, AND THEN TAKE 1 TABLET BY MOUTH ONCE A DAY ON DAY 2 THROUGH DAY 5 active Not Available Not Available No t Available benzonatate 200 mg capsule TAKE 1 CAPSULE BY MOUTH THREE TIMES DAILY FOR 7 DAYS active Not Available Not Available No t Available prednisone 20 mg tablet active Not Available Not Available No t Available sulfamethoxazo le 800 mg-trimethopri m 160 mg tablet TAKE 1 TABLET BY MOUTH EVERY 12 HOURS FOR 10 DAYS active Not Available Not Available No t Available methylpredniso lone 4 mg tablets in a dose pack TAKE BY MOUTH DIRECTED ON INSIDE OF PACKAGE active Not Available Not Available No t Available amoxicillin 875 mg-potassium clavulanate 125 mg tablet TAKE 1 TABLET BY MOUTH EVERY 12 HOURS FOR 7 DAYS active Not Available Not Available No t Available Vitals Date Recorded Body weight Body temperature Oxygen saturation Oxygen saturation in Arterial blood by Pulse oximetry Heart rate Systolic And Diastolic Provider Name and Address Organization Details Last Updated DateTime 3 828412. 75 g 97.9 [degF] 98 % 98 % 81 /min 118/90 mm[Hg] Vesta Lui [facility] & [place] 10:57:14 Social History None recorded. Functional Status None recorded. Mental Status None recorded. Family History Relationship Description Onset Age of this Age Resolved Age Notes LastModified by Organization Details LastModified Time Father No current problems or disability [email or web address] Not available 08:39:44 Mother No current problems or disability [email or web address] Not available 08:39:44 Medical History Condition Response None N Gynecological HistoryNo gynecological history recorded. Obstetrics History GPAL:G 0 P 0 0 0 0 Past Encounters Encounter ID Performer Location Encounter Start Date Encounter Closed Date Diagnosis/Indication Diagnosis SNOMED-CT Code Diagnosis ICD10 Code Diagnosis IMO Codes Diagnosis Note [id number] Jose M Tamez MD [facility] Infectiou s Disease [address] [address] [place] [address] 11/03/2023 10:16:13 11/03/2023 11:41:20 Hidradenitis suppurativa 88770198 L73.2 This appears to be the predominan t issue with intercurre nt abscesses that require incision and drainage. There is no visible abscesses today. No further Augmentin is needed for the abscess over the chest, which was incised and drained and treated appropriat radha with antibiotic s. For the hidradenit is, it appears that this was incomplete ly controlled on doxycyclin e in the past. This would likely be all that I could offer this patient. I believe she would benefit from a referral to Dermatolog y. She likely needs some type of anti-hormo nal treatment or more high-power ed anti-infla mmatory medication like a TNF antagonist . She will follow up with me in the event that she gets another abscess. 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 This is resolved. No additional Augmentin needed as above. Health Concerns Section Related Observation LastModified by Organization Detai ls LastModified Time None Recorded Concern Status LastModified by Organization Details LastModified Time None Recorded Advance Directives Directive None Recorded Payers Insurance Date Sequence Insurance Name Policy Number Policy Christianson Covered Member ID Christianson Member ID Guarantor Name 06/11/2024 1 [place] [id number] Natalie Sharp [id number] Natalie Aron Notes Date Note Type Note Provider Name and Address Organization Details Recorded Time 11/03/2023 text/html ROS as noted in the HPI This is a 32-year-old white female with past medical history of nicotine dependence and obesity. She is referred to me for skin abscesses. Apparently, this has been a recurrent issue since she was 15. The predominant areas that have been involved have been her armpits, under her breasts, and in her groin. The most recent area was under her left breast. 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 She was treated with Augmentin, which helped. That area is much improved. She has multiple scars over her armpits and groin from previous issues. Otherwise, she denies any complaint. No fever. Jose M Tamez MD [address] [facility], [place], [address], [facility] & [place] 11/04/2023 08:43:18 OBGyn Episode No OBEpisode recorded.
[2025-09-13 03:51] VITALS: BP 134/77; PULSE 88; RESP 16; TEMP 37.1; O2SAT 99
== END 2025-09-13 03:52 | disposition home or self-care (01) ==
LOC: ER 03:29
PROVIDERS: Emergency Provider Emergency Medicine; PCP Nurse Practitioner Family
DX: S60.021A Contusion of right index finger without damage to nail, initial encounter (principal); S60.031A Contusion of right middle finger without damage to nail, initial encounter; S60.041A Contusion of right ring finger without damage to nail, initial encounter; W22.8XXA Striking against or struck by other objects, initial encounter
CPT/HCPCS: 73130; 99283